=== PATIENT | male | born 1950 | race Caucasian/White ===

== ENCOUNTER 2016-08-12 09:35 | Inpatient (IN) | payer SELFPAY ==
[~2016-08-12] VITALS: Ht 165.1 cm; Wt 73.1 kg
[2016-08-12] MEDS ORDERED: FUROSEMIDE 20 MG/2 ML VIAL IV ONE (10:45)
[2016-08-12 11:08] LABS: Basophils # (auto) 0.2 uL; Eosinophils # (auto) 0.4 uL; Eosinophils % (auto) 4.5 % (0.0-7.0); Hematocrit 38.6 % (41.0-53.0); Hemoglobin 12.7 g/dL (13.5-17.5); Lymphocytes # (auto) 1.3 uL; Lymphocytes % (auto) 14.9 % (10.0-50.0); Mean Corpuscular Hemoglobin 31.5 pg (28.0-32.0); Mean Corpuscular Hgb Conc. 32.8 g/dL (32.0-36.0); Mean Corpuscular Volume 95.8 fL (80.0-100.0); Monocytes # (auto) 0.5 uL; Neutrophils # (auto) 6.4 uL; Neutrophils % (auto) 72.6 % (37.0-80.0); Platelet Count (auto) 425 10^3/uL (140-450); Red Cell Distribution Width 14.1 % (11.6-16.0); White Blood Cell 8.8 10^3/uL (4.4-10.8)
[2016-08-12 11:22] LABS: Albumin 2.2 g/dL (3.4-5.0); BUN/Creatinine Ratio 8.5; Bilirubin, Total 0.2 mg/dL (0.2-1.0); Calcium 7.8 mg/dL (8.5-10.1); Magnesium 2.3 mg/dL (1.6-2.6); Potassium 4.9 mmol/L (3.5-5.1); Total Protein 6.4 g/dL (6.4-8.2)
[2016-08-12 11:23] LABS: INR 0.97 (0.9-1.15); Partial Thromboplastin Time 26.8 sec (22.64-33.71); Prothrombin Time 10.5 sec (9.37-12.3)
[2016-08-12 11:30] LABS: B-Type Natriuretic Peptide 3407.56 pg/mL (0-100); Temperature: 21.5 C (20.0-25.0)
[2016-08-12] MEDS ORDERED: ENOXAPARIN SOD 80 MG/0.8ML SYRINGE SC ONE (13:30)
[2016-08-12] MEDS ORDERED: ASPirin-EC 81 mg tab PO ONE ×2 (14:15→14:45)
[2016-08-12] MEDS ORDERED: MORPHINE SULF INJ 2 MG/ML SYRINGE 1ML IV PRN (14:30)
[2016-08-12] MEDS ORDERED: ACETAMINOPHEN 325 MG TAB PO PRN (14:30)
[2016-08-12] MEDS ORDERED: ONDANSETRON HCL 4 MG/2 ML VIAL IV PRN (14:30)
[2016-08-12] MEDS ORDERED: NITROGLYCERIN 0.4 MG SL TAB SL PRN (14:30)
[2016-08-12] MEDS ORDERED: cloNIDine HCL 0.1 MG TAB PO PRN (14:30)
[2016-08-12] MEDS ORDERED: DOCUSATE SOD 100 MG CAP PO PRN (14:30)
[2016-08-12] MEDS ORDERED: TEMAZEPAM 15 MG CAP PO PRN (14:30)
[2016-08-12] MEDS ORDERED: ENOXAPARIN SOD 30 MG/0.3 ML SYRINGE SC ONE (14:45)
[2016-08-12] MEDS ORDERED: MULTIPLE VITAMIN TAB PO ONE (14:45)
[2016-08-12] MEDS ORDERED: FAMOTIDINE 20 MG TAB PO ONE (14:45)
[2016-08-12 15:01] LABS: Urine Bilirubin Negative (Negative); Urine Blood 1+ /uL (Negative); Urine Color Yellow (Yellow); Urine Glucose 1+ mg/dL (Normal); Urine Ketone Negative (Negative); Urine Nitrite Negative (Negative); Urine RBC 1 /hpf (0 - 3); Urine Squamous Epithelial Cell FEW /hpf (<5); Urine Urobilinogen Normal (Negative)
[2016-08-12] MEDS ORDERED: ASPI81CH43 PO (16:18)
[2016-08-12 17:00] VITALS: BP 168/91
[2016-08-12] MEDS: FUROSEMIDE 40 MG/4 ML VIAL IV SCH (17:44)
[2016-08-12] MEDS: BOOST PLUS 8 ounce PO SCH ×2 (17:45→22:35)
[2016-08-12 22:00] VITALS: BP 144/76
[2016-08-12] MEDS ORDERED: FAMOTIDINE 20 MG TAB PO SCH (22:00)
[2016-08-12] MEDS: POTASSIUM CHLORIDE 8 MEQ TAB PO SCH (22:34)
[2016-08-12] MEDS: SODIUM CHLOR 0.9% PF (SALINE LOCK) 10ML VIAL IV SCH (22:35)
[2016-08-12] MEDS: ATORVASTATIN 20 MG TAB PO SCH (22:35)
[2016-08-13 05:00] VITALS: BP 124/63
[2016-08-13] MEDS: BOOST PLUS 8 ounce PO SCH ×4 (06:00→22:00)
[2016-08-13] MEDS: SODIUM CHLOR 0.9% PF (SALINE LOCK) 10ML VIAL IV SCH ×3 (06:20→22:04)
[2016-08-13 06:41] LABS: Basophils # (auto) 0.1 uL; Basophils % (auto) 1.1 % (0.0-2.0); Eosinophils # (auto) 0.5 uL; Hematocrit 33.1 % (41.0-53.0); Lymphocytes # (auto) 1.7 uL; Lymphocytes % (auto) 23.8 % (10.0-50.0); Mean Corpuscular Hgb Conc. 33.4 g/dL (32.0-36.0); Mean Corpuscular Volume 95.7 fL (80.0-100.0); Mean Platelet Volume 7.8 fL (7.4-10.4); Monocytes # (auto) 0.6 uL; Monocytes % (auto) 7.8 % (0.0-12.0); Neutrophils # (auto) 4.3 uL; Neutrophils % (auto) 60.3 % (37.0-80.0); Platelet Count (auto) 350 10^3/uL (140-450); Red Cell Distribution Width 14.8 % (11.6-16.0); White Blood Cell 7.2 10^3/uL (4.4-10.8)
[2016-08-13 06:57] LABS: Albumin 1.7 g/dL (3.4-5.0); BUN/Creatinine Ratio 8.7; Bilirubin, Total 0.2 mg/dL (0.2-1.0); Calcium 7.3 mg/dL (8.5-10.1); Potassium 4.9 mmol/L (3.5-5.1); Total Protein 5.1 g/dL (6.4-8.2)
[2016-08-13] MEDS: FUROSEMIDE 40 MG/4 ML VIAL IV SCH ×2 (08:02→17:39)
[2016-08-13 08:15] VITALS: BP 136/63
[2016-08-13] MEDS ORDERED: ADENOSINE 72 MG in GIVE UN-DILUTED 0 ML IV ONE (08:15)
[2016-08-13 08:26] VITALS: BP 136/63
[2016-08-13] MEDS ORDERED: ENOXAPARIN SOD 40 MG/0.4 ML SYRINGE SC SCH (10:00)
[2016-08-13 11:24] LABS: Phosphorus 5.8 mg/dL (2.5-4.90); Uric Acid 6.3 mg/dL (3.5-7.2)
[2016-08-13] MEDS: ENOXAPARIN SOD 30 MG/0.3 ML SYRINGE SC SCH (12:23)
[2016-08-13] MEDS: MULTIPLE VITAMIN TAB PO SCH (12:24)
[2016-08-13] MEDS: ASPirin-EC 81 mg tab PO SCH (12:24)
[2016-08-13] MEDS: POTASSIUM CHLORIDE 8 MEQ TAB PO SCH ×2 (12:24→22:04)
[2016-08-13] MEDS: FAMOTIDINE 20 MG TAB PO SCH (12:24)
[2016-08-13] MEDS: HYDROcodone-ACET 5/325MG TAB PO PRN (15:04)
[2016-08-13] MEDS ORDERED: MORPHINE SULF INJ 2 MG/ML SYRINGE 1ML IV PRN (15:15)
[2016-08-13] MEDS: HYDROmorphone HCL 2 MG/ML VL IV PRN ×2 (16:55→22:30)
[2016-08-13 17:14] VITALS: BP 162/85
[2016-08-13] MEDS: CALCIUM ACETATE 667 MG CAP PO SCH (17:39)
[2016-08-13] MEDS: TAMSULOSIN HYDROCHLORIDE 0.4 MG CAP PO SCH (17:39)
[2016-08-13 17:51] VITALS: BP 145/74
[2016-08-13 22:00] VITALS: BP 132/60
[2016-08-13] MEDS: ATORVASTATIN 20 MG TAB PO SCH (22:04)
[2016-08-13 22:57] LABS: Body Fluid Polymorphonuclear 59 %
[2016-08-14] MEDS: HYDROmorphone HCL 2 MG/ML VL IV PRN ×4 (03:33→21:52)
[2016-08-14 05:00] VITALS: BP 135/69
[2016-08-14] MEDS: BOOST PLUS 8 ounce PO SCH ×4 (06:00→21:43)
[2016-08-14] MEDS: FUROSEMIDE 40 MG/4 ML VIAL IV SCH (06:14)
[2016-08-14] MEDS: SODIUM CHLOR 0.9% PF (SALINE LOCK) 10ML VIAL IV SCH ×3 (06:14→21:43)
[2016-08-14 06:38] LABS: Basophils # (auto) 0.1 uL; Basophils % (auto) 0.7 % (0.0-2.0); Eosinophils # (auto) 0.3 uL; Eosinophils % (auto) 2.7 % (0.0-7.0); Hematocrit 36.1 % (41.0-53.0); Hemoglobin 11.9 g/dL (13.5-17.5); Lymphocytes # (auto) 1.4 uL; Lymphocytes % (auto) 11.6 % (10.0-50.0); Mean Corpuscular Hemoglobin 31.9 pg (28.0-32.0); Mean Corpuscular Hgb Conc. 33.1 g/dL (32.0-36.0); Mean Corpuscular Volume 96.4 fL (80.0-100.0); Mean Platelet Volume 8.1 fL (7.4-10.4); Monocytes # (auto) 0.8 uL; Monocytes % (auto) 6.3 % (0.0-12.0); Neutrophils # (auto) 9.4 uL; Neutrophils % (auto) 78.7 % (37.0-80.0); Platelet Count (auto) 382 10^3/uL (140-450); Red Cell Distribution Width 14.5 % (11.6-16.0)
[2016-08-14 07:27] LABS: Albumin 1.7 g/dL (3.4-5.0); Bilirubin, Total 0.2 mg/dL (0.2-1.0); Calcium 7.3 mg/dL (8.5-10.1); Potassium 5.2 mmol/L (3.5-5.1); Total Protein 5.3 g/dL (6.4-8.2)
[2016-08-14] MEDS: CALCIUM ACETATE 667 MG CAP PO SCH ×3 (07:51→18:43)
[2016-08-14 08:44] VITALS: BP 136/67
[2016-08-14] MEDS: FAMOTIDINE 20 MG TAB PO SCH (09:29)
[2016-08-14] MEDS: MULTIPLE VITAMIN TAB PO SCH (09:29)
[2016-08-14] MEDS: POTASSIUM CHLORIDE 8 MEQ TAB PO SCH ×2 (09:29→21:41)
[2016-08-14] MEDS: ENOXAPARIN SOD 30 MG/0.3 ML SYRINGE SC SCH (09:29)
[2016-08-14] MEDS: ASPirin-EC 81 mg tab PO SCH (09:29)
[2016-08-14 13:14] VITALS: BP 130/65
[2016-08-14] MEDS ORDERED: BUMETANIDE INJECTION 25 MG in GIVE UN-DILUTED 0 ML IV SCH ×2 (15:15→22:00)
[2016-08-14 16:57] VITALS: BP 142/81
[2016-08-14] MEDS: ALBUMIN 25% 100 ML IV SCH ×4 (17:10→19:15)
[2016-08-14] MEDS: TAMSULOSIN HYDROCHLORIDE 0.4 MG CAP PO SCH (18:43)
[2016-08-14] MEDS: ATORVASTATIN 20 MG TAB PO SCH (21:41)
[2016-08-14 22:00] VITALS: BP 144/76
[2016-08-15] MEDS: HYDROmorphone HCL 2 MG/ML VL IV PRN ×4 (04:10→20:28)
[2016-08-15 05:00] VITALS: BP 135/65
[2016-08-15] MEDS: BOOST PLUS 8 ounce PO SCH ×4 (06:00→21:43)
[2016-08-15] MEDS: SODIUM CHLOR 0.9% PF (SALINE LOCK) 10ML VIAL IV SCH ×3 (06:19→21:43)
[2016-08-15 06:23] LABS: Basophils # (auto) 0.1 uL; Basophils % (auto) 0.8 % (0.0-2.0); Eosinophils # (auto) 0.5 uL; Eosinophils % (auto) 5.1 % (0.0-7.0); Hematocrit 30.2 % (41.0-53.0); Hemoglobin 10.1 g/dL (13.5-17.5); Lymphocytes # (auto) 1.8 uL; Lymphocytes % (auto) 17.6 % (10.0-50.0); Mean Corpuscular Hemoglobin 32.2 pg (28.0-32.0); Mean Corpuscular Hgb Conc. 33.5 g/dL (32.0-36.0); Mean Platelet Volume 7.6 fL (7.4-10.4); Monocytes # (auto) 0.7 uL; Monocytes % (auto) 7.4 % (0.0-12.0); Neutrophils % (auto) 69.1 % (37.0-80.0); Platelet Count (auto) 343 10^3/uL (140-450); Red Cell Distribution Width 14.2 % (11.6-16.0); White Blood Cell 10.1 10^3/uL (4.4-10.8)
[2016-08-15 06:41] LABS: Albumin 3.2 g/dL (3.4-5.0); BUN/Creatinine Ratio 9.1; Bilirubin, Total 0.3 mg/dL (0.2-1.0); Magnesium 2.4 mg/dL (1.6-2.6); Phosphorus 5.7 mg/dL (2.5-4.90); Potassium 5.3 mmol/L (3.5-5.1)
[2016-08-15] MEDS: CALCIUM ACETATE 667 MG CAP PO SCH ×3 (07:54→18:00)
[2016-08-15 09:09] VITALS: BP 132/69
[2016-08-15] MEDS: MULTIPLE VITAMIN TAB PO SCH (09:41)
[2016-08-15] MEDS: FAMOTIDINE 20 MG TAB PO SCH (09:41)
[2016-08-15] MEDS: ASPirin-EC 81 mg tab PO SCH (09:41)
[2016-08-15] MEDS: ENOXAPARIN SOD 30 MG/0.3 ML SYRINGE SC SCH (09:41)
[2016-08-15] MEDS: POTASSIUM CHLORIDE 8 MEQ TAB PO SCH ×2 (10:00→21:43)
[2016-08-15 13:10] VITALS: BP 147/76
[2016-08-15 13:35] LABS: Rheumatoid Arthritis Factor <10.0 IU/mL (0.0-13.9)
[2016-08-15 13:35] LABS: PSA Free 0.14 ng/mL; Prostate Specific Antigen 0.7 ng/mL (0.0-4.0)
[2016-08-15 17:00] VITALS: BP 136/84
[2016-08-15] MEDS: TAMSULOSIN HYDROCHLORIDE 0.4 MG CAP PO SCH (18:00)
[2016-08-15] MEDS: ATORVASTATIN 20 MG TAB PO SCH (21:43)
[2016-08-15 22:00] VITALS: BP 157/76
[2016-08-16] VITALS (7 sets, daily range): BP systolic 147–166; BP diastolic 69–95
[2016-08-16] MEDS: HYDROmorphone HCL 2 MG/ML VL IV PRN ×4 (04:55→20:12)
[2016-08-16] MEDS: BOOST PLUS 8 ounce PO SCH ×4 (06:00→20:18)
[2016-08-16] MEDS: SODIUM CHLOR 0.9% PF (SALINE LOCK) 10ML VIAL IV SCH ×3 (06:29→20:18)
[2016-08-16 07:13] LABS: Basophils # (auto) 0.2 uL; Basophils % (auto) 1.8 % (0.0-2.0); Eosinophils # (auto) 0.6 uL; Eosinophils % (auto) 6.6 % (0.0-7.0); Hematocrit 30.9 % (41.0-53.0); Hemoglobin 10.3 g/dL (13.5-17.5); Lymphocytes # (auto) 1.5 uL; Lymphocytes % (auto) 16.5 % (10.0-50.0); Mean Corpuscular Hemoglobin 31.8 pg (28.0-32.0); Mean Corpuscular Hgb Conc. 33.4 g/dL (32.0-36.0); Mean Corpuscular Volume 95.3 fL (80.0-100.0); Mean Platelet Volume 7.8 fL (7.4-10.4); Monocytes # (auto) 0.7 uL; Monocytes % (auto) 7.6 % (0.0-12.0); Neutrophils % (auto) 67.5 % (37.0-80.0); Platelet Count (auto) 351 10^3/uL (140-450); Red Cell Distribution Width 13.9 % (11.6-16.0); White Blood Cell 8.9 10^3/uL (4.4-10.8)
[2016-08-16 07:35] LABS: BUN/Creatinine Ratio 9.6; Magnesium 2.3 mg/dL (1.6-2.6); Phosphorus 5.1 mg/dL (2.5-4.90); Potassium 5.1 mmol/L (3.5-5.1)
[2016-08-16 08:10] LABS: Vitamin D 25-Hydroxy 5.3 ng/mL (.); Vitamin D-2 25-Hydroxy <1.0 ng/mL (.)
[2016-08-16] MEDS: CALCIUM ACETATE 667 MG CAP PO SCH ×3 (09:25→18:38)
[2016-08-16] MEDS: POTASSIUM CHLORIDE 8 MEQ TAB PO SCH ×2 (09:31→20:19)
[2016-08-16] MEDS: ENOXAPARIN SOD 30 MG/0.3 ML SYRINGE SC SCH (09:31)
[2016-08-16] MEDS: MULTIPLE VITAMIN TAB PO SCH (09:31)
[2016-08-16] MEDS: FAMOTIDINE 20 MG TAB PO SCH (09:31)
[2016-08-16] MEDS: ASPirin-EC 81 mg tab PO SCH (09:31)
[2016-08-16] MEDS ORDERED: BUMETANIDE INJECTION 25 MG in GIVE UN-DILUTED 0 ML IV SCH (17:00)
[2016-08-16] MEDS: TAMSULOSIN HYDROCHLORIDE 0.4 MG CAP PO SCH (18:38)
[2016-08-16] MEDS: ATORVASTATIN 20 MG TAB PO SCH (22:30)
[2016-08-17] VITALS (7 sets, daily range): BP systolic 142–169; BP diastolic 74–93
[2016-08-17] MEDS: HYDROmorphone HCL 2 MG/ML VL IV PRN ×5 (01:33→20:32)
[2016-08-17] MEDS: SODIUM CHLOR 0.9% PF (SALINE LOCK) 10ML VIAL IV SCH ×3 (05:40→22:11)
[2016-08-17] MEDS: BOOST PLUS 8 ounce PO SCH ×4 (06:00→22:00)
[2016-08-17 06:28] LABS: Basophils # (auto) 0 uL; Basophils % (auto) 0.6 % (0.0-2.0); Eosinophils # (auto) 0.5 uL; Eosinophils % (auto) 6.2 % (0.0-7.0); Hematocrit 30.1 % (41.0-53.0); Hemoglobin 10.2 g/dL (13.5-17.5); Lymphocytes # (auto) 1.5 uL; Lymphocytes % (auto) 17.8 % (10.0-50.0); Mean Corpuscular Hemoglobin 32.4 pg (28.0-32.0); Mean Corpuscular Hgb Conc. 33.8 g/dL (32.0-36.0); Mean Corpuscular Volume 95.8 fL (80.0-100.0); Mean Platelet Volume 8.1 fL (7.4-10.4); Monocytes # (auto) 0.6 uL; Monocytes % (auto) 7.1 % (0.0-12.0); Neutrophils # (auto) 5.6 uL; Neutrophils % (auto) 68.3 % (37.0-80.0); Platelet Count (auto) 359 10^3/uL (140-450); Red Cell Distribution Width 13.9 % (11.6-16.0); White Blood Cell 8.2 10^3/uL (4.4-10.8)
[2016-08-17 06:41] LABS: Potassium 4.7 mmol/L (3.5-5.1)
[2016-08-17 06:53] LABS: BUN/Creatinine Ratio 9.5; Calcium 7.7 mg/dL (8.5-10.1); Magnesium 2.2 mg/dL (1.6-2.6)
[2016-08-17 06:56] LABS: Phosphorus 4.9 mg/dL (2.5-4.90)
[2016-08-17] MEDS: CALCIUM ACETATE 667 MG CAP PO SCH ×3 (08:29→17:52)
[2016-08-17] MEDS: MULTIPLE VITAMIN TAB PO SCH (10:55)
[2016-08-17] MEDS: FAMOTIDINE 20 MG TAB PO SCH (10:56)
[2016-08-17] MEDS: POTASSIUM CHLORIDE 8 MEQ TAB PO SCH (10:56)
[2016-08-17] MEDS: ASPirin-EC 81 mg tab PO SCH (10:56)
[2016-08-17] MEDS: ENOXAPARIN SOD 30 MG/0.3 ML SYRINGE SC SCH (10:56)
[2016-08-17] MEDS: TAMSULOSIN HYDROCHLORIDE 0.4 MG CAP PO SCH (17:52)
[2016-08-17] MEDS ORDERED: BUMETANIDE INJECTION 25 MG in GIVE UN-DILUTED 0 ML IV SCH (19:30)
[2016-08-17] MEDS: ATORVASTATIN 20 MG TAB PO SCH (22:11)
[2016-08-18] MEDS: HYDROmorphone HCL 2 MG/ML VL IV PRN ×4 (01:24→20:15)
[2016-08-18 05:00] VITALS: BP 162/83
[2016-08-18] MEDS: BOOST PLUS 8 ounce PO SCH ×4 (06:00→22:08)
[2016-08-18] MEDS: SODIUM CHLOR 0.9% PF (SALINE LOCK) 10ML VIAL IV SCH ×3 (06:00→22:08)
[2016-08-18 06:16] LABS: Basophils # (auto) 0.1 uL; Basophils % (auto) 0.8 % (0.0-2.0); Eosinophils # (auto) 0.6 uL; Eosinophils % (auto) 6.2 % (0.0-7.0); Hematocrit 31.7 % (41.0-53.0); Hemoglobin 10.9 g/dL (13.5-17.5); Lymphocytes # (auto) 1.4 uL; Lymphocytes % (auto) 14.2 % (10.0-50.0); Mean Corpuscular Hemoglobin 32.3 pg (28.0-32.0); Mean Corpuscular Hgb Conc. 34.3 g/dL (32.0-36.0); Mean Corpuscular Volume 94.3 fL (80.0-100.0); Mean Platelet Volume 7.6 fL (7.4-10.4); Monocytes # (auto) 0.6 uL; Monocytes % (auto) 6.7 % (0.0-12.0); Neutrophils # (auto) 6.9 uL; Neutrophils % (auto) 72.1 % (37.0-80.0); Platelet Count (auto) 383 10^3/uL (140-450); Red Cell Distribution Width 13.6 % (11.6-16.0); White Blood Cell 9.6 10^3/uL (4.4-10.8)
[2016-08-18 06:49] LABS: BUN/Creatinine Ratio 9.8; Calcium 8.2 mg/dL (8.5-10.1); Magnesium 2.1 mg/dL (1.6-2.6); Potassium 4.6 mmol/L (3.5-5.1)
[2016-08-18 07:22] VITALS: BP 151/71
[2016-08-18] MEDS: CALCIUM ACETATE 667 MG CAP PO SCH ×3 (09:50→17:30)
[2016-08-18] MEDS: ASPirin-EC 81 mg tab PO SCH (09:51)
[2016-08-18] MEDS: FAMOTIDINE 20 MG TAB PO SCH (09:51)
[2016-08-18] MEDS: MULTIPLE VITAMIN TAB PO SCH (09:51)
[2016-08-18] MEDS: ENOXAPARIN SOD 30 MG/0.3 ML SYRINGE SC SCH (09:52)
[2016-08-18] MEDS: HYDROcodone-ACET 5/325MG TAB PO PRN ×2 (09:53→16:21)
[2016-08-18 11:58] VITALS: BP 148/77
[2016-08-18 16:30] VITALS: BP 146/77
[2016-08-18] MEDS: TAMSULOSIN HYDROCHLORIDE 0.4 MG CAP PO SCH (17:30)
[2016-08-18 21:51] VITALS: BP 150/69
[2016-08-18] MEDS: ATORVASTATIN 20 MG TAB PO SCH (22:08)
[2016-08-19 05:42] VITALS: BP 160/69
[2016-08-19] MEDS: BOOST PLUS 8 ounce PO SCH ×4 (06:19→21:49)
[2016-08-19] MEDS: SODIUM CHLOR 0.9% PF (SALINE LOCK) 10ML VIAL IV SCH ×3 (06:19→21:48)
[2016-08-19] MEDS: MULTIPLE VITAMIN TAB PO SCH (08:00)
[2016-08-19] MEDS: CALCIUM ACETATE 667 MG CAP PO SCH ×3 (08:00→17:23)
[2016-08-19] MEDS: ASPirin-EC 81 mg tab PO SCH (08:00)
[2016-08-19] MEDS: ENOXAPARIN SOD 30 MG/0.3 ML SYRINGE SC SCH (08:01)
[2016-08-19] MEDS: FAMOTIDINE 20 MG TAB PO SCH (08:01)
[2016-08-19] MEDS: HYDROmorphone HCL 2 MG/ML VL IV PRN ×2 (08:02→16:24)
[2016-08-19 08:34] VITALS: BP 154/74
[2016-08-19] MEDS: HYDROcodone-ACET 5/325MG TAB PO PRN ×3 (11:19→21:54)
[2016-08-19 11:56] VITALS: BP_SYST 144; BP_SYST 161; BP_DIAS 67; BP_DIAS 97
[2016-08-19] MEDS ORDERED: BUME1TAB26 PO (13:20)
[2016-08-19] MEDS ORDERED: MULTTAB99 PO (13:20)
[2016-08-19] MEDS ORDERED: ATOR20TA50 PO (13:20)
[2016-08-19] MEDS ORDERED: TAM04C PO (13:20)
[2016-08-19] MEDS ORDERED: CAL667C PO (13:20)
[2016-08-19] MEDS ORDERED: LIDOCAINE 2%HCL (LOCAL ANESTH.) INJ 20ML MDV ONE (14:55)
[2016-08-19] MEDS ORDERED: MIDAZOLAM HCL 1MG/1ML-2 ML VIAL ONE (14:55)
[2016-08-19] MEDS: TAMSULOSIN HYDROCHLORIDE 0.4 MG CAP PO SCH (17:23)
[2016-08-19] MEDS ORDERED: BUMETANIDE 1 MG TAB PO ONE (21:15)
[2016-08-19] MEDS: ATORVASTATIN 20 MG TAB PO SCH (21:49)
[2016-08-19 22:00] VITALS: BP 155/80
[2016-08-20] MEDS: HYDROmorphone HCL 2 MG/ML VL IV PRN ×3 (01:22→18:07)
[2016-08-20] MEDS: HYDROcodone-ACET 5/325MG TAB PO PRN ×5 (04:06→22:46)
[2016-08-20 05:00] VITALS: BP 143/81
[2016-08-20] MEDS: SODIUM CHLOR 0.9% PF (SALINE LOCK) 10ML VIAL IV SCH ×3 (06:00→22:48)
[2016-08-20] MEDS: BOOST PLUS 8 ounce PO SCH ×4 (06:00→22:00)
[2016-08-20] MEDS: BUMETANIDE 1 MG TAB PO SCH (08:40)
[2016-08-20 08:41] VITALS: BP 158/81
[2016-08-20] MEDS: ASPirin-EC 81 mg tab PO SCH (08:42)
[2016-08-20] MEDS: FAMOTIDINE 20 MG TAB PO SCH (08:42)
[2016-08-20] MEDS: CALCIUM ACETATE 667 MG CAP PO SCH ×3 (08:43→18:07)
[2016-08-20] MEDS: MULTIPLE VITAMIN TAB PO SCH (08:43)
[2016-08-20 11:52] VITALS: BP 144/70
[2016-08-20 17:41] VITALS: BP 147/67
[2016-08-20] MEDS: TAMSULOSIN HYDROCHLORIDE 0.4 MG CAP PO SCH (18:07)
[2016-08-20 22:00] VITALS: BP 134/66
[2016-08-20] MEDS: ATORVASTATIN 20 MG TAB PO SCH (22:46)
[2016-08-21] MEDS: HYDROmorphone HCL 2 MG/ML VL IV PRN ×3 (02:05→18:19)
[2016-08-21 05:00] VITALS: BP 157/73
[2016-08-21] MEDS: SODIUM CHLOR 0.9% PF (SALINE LOCK) 10ML VIAL IV SCH ×3 (05:18→22:00)
[2016-08-21 05:57] LABS: Basophils # (auto) 0 uL; Basophils % (auto) 0.3 % (0.0-2.0); Eosinophils # (auto) 0.6 uL; Hematocrit 32.3 % (41.0-53.0); Hemoglobin 10.7 g/dL (13.5-17.5); Lymphocytes # (auto) 1.7 uL; Lymphocytes % (auto) 15.8 % (10.0-50.0); Mean Corpuscular Hemoglobin 31.8 pg (28.0-32.0); Mean Corpuscular Hgb Conc. 33.3 g/dL (32.0-36.0); Mean Corpuscular Volume 95.7 fL (80.0-100.0); Mean Platelet Volume 7.8 fL (7.4-10.4); Monocytes # (auto) 0.8 uL; Monocytes % (auto) 7.3 % (0.0-12.0); Neutrophils # (auto) 7.6 uL; Neutrophils % (auto) 70.6 % (37.0-80.0); Platelet Count (auto) 412 10^3/uL (140-450); Red Cell Distribution Width 13.9 % (11.6-16.0); White Blood Cell 10.7 10^3/uL (4.4-10.8)
[2016-08-21] MEDS: BOOST PLUS 8 ounce PO SCH ×4 (06:00→22:00)
[2016-08-21 06:15] LABS: Potassium 4.1 mmol/L (3.5-5.1)
[2016-08-21 06:37] LABS: BUN/Creatinine Ratio 9.8; Calcium 7.8 mg/dL (8.5-10.1)
[2016-08-21 08:00] VITALS: BP 146/67
[2016-08-21] MEDS: CALCIUM ACETATE 667 MG CAP PO SCH ×3 (08:22→17:36)
[2016-08-21] MEDS: MULTIPLE VITAMIN TAB PO SCH (10:17)
[2016-08-21] MEDS: FAMOTIDINE 20 MG TAB PO SCH (10:17)
[2016-08-21] MEDS: BUMETANIDE 1 MG TAB PO SCH (10:19)
[2016-08-21] MEDS: ASPirin-EC 81 mg tab PO SCH (10:19)
[2016-08-21 12:00] VITALS: BP 118/56
[2016-08-21] MEDS: HYDROcodone-ACET 5/325MG TAB PO PRN ×2 (15:26→21:44)
[2016-08-21 17:00] VITALS: BP 145/64
[2016-08-21] MEDS: TAMSULOSIN HYDROCHLORIDE 0.4 MG CAP PO SCH (17:35)
[2016-08-21 21:30] VITALS: BP 156/80
[2016-08-21] MEDS: ATORVASTATIN 20 MG TAB PO SCH (21:44)
[2016-08-22] MEDS: HYDROmorphone HCL 2 MG/ML VL IV PRN (02:39)
[2016-08-22 05:19] VITALS: BP 142/72
[2016-08-22] MEDS: BOOST PLUS 8 ounce PO SCH (06:00)
[2016-08-22] MEDS: SODIUM CHLOR 0.9% PF (SALINE LOCK) 10ML VIAL IV SCH (06:08)
[2016-08-22 06:32] LABS: Basophils # (auto) 0 uL; Basophils % (auto) 0.4 % (0.0-2.0); Eosinophils # (auto) 0.7 uL; Eosinophils % (auto) 7.4 % (0.0-7.0); Hematocrit 33.6 % (41.0-53.0); Hemoglobin 11.2 g/dL (13.5-17.5); Lymphocytes # (auto) 1.6 uL; Lymphocytes % (auto) 16.8 % (10.0-50.0); Mean Corpuscular Hemoglobin 31.7 pg (28.0-32.0); Mean Corpuscular Hgb Conc. 33.2 g/dL (32.0-36.0); Mean Corpuscular Volume 95.3 fL (80.0-100.0); Mean Platelet Volume 8.1 fL (7.4-10.4); Monocytes # (auto) 0.6 uL; Neutrophils # (auto) 6.5 uL; Neutrophils % (auto) 69.4 % (37.0-80.0); Platelet Count (auto) 432 10^3/uL (140-450); Red Cell Distribution Width 13.5 % (11.6-16.0); White Blood Cell 9.4 10^3/uL (4.4-10.8)
[2016-08-22 06:52] LABS: Potassium 4.4 mmol/L (3.5-5.1)
[2016-08-22 06:58] LABS: Calcium 7.9 mg/dL (8.5-10.1)
[2016-08-22 08:00] VITALS: BP 130/49
[2016-08-22] MEDS: CALCIUM ACETATE 667 MG CAP PO SCH ×2 (08:20→12:00)
[2016-08-22] MEDS: MULTIPLE VITAMIN TAB PO SCH (10:01)
[2016-08-22] MEDS: FAMOTIDINE 20 MG TAB PO SCH (10:01)
[2016-08-22] MEDS: ASPirin-EC 81 mg tab PO SCH (10:01)
[2016-08-22] MEDS: BUMETANIDE 1 MG TAB PO SCH (10:02)
[2016-08-22 11:00] VITALS: BP_SYST 145
[2016-08-22 14:38] VITALS: BP 130/49
== END 2016-08-22 15:45 | disposition home or self-care (01) | DRG 682 ==
LOC: ER 09:35 → TELE 09:36 → TELE-E-ADS 16:16 → TELE-WESTW 16:49
PROVIDERS: ADMIT Internal Medicine; ATTEND Family Medicine
PROC: 0W993ZZ Drainage of Right Pleural Cavity, Percutaneous Approach (ICD-10-PCS; principal; 2016-08-13)
PROC: 0W993ZZ Drainage of Right Pleural Cavity, Percutaneous Approach (ICD-10-PCS; 2016-08-18)
PROC: 0W9830Z Drainage of Chest Wall with Drainage Device, Percutaneous Approach (ICD-10-PCS; 2016-08-19)
DX: N17.9 Acute kidney failure, unspecified (principal); E43 Unspecified severe protein-calorie malnutrition; I50.43 Acute on chronic combined systolic (congestive) and diastolic (congestive) heart failure; J96.90 Respiratory failure, unspecified, unspecified whether with hypoxia or hypercapnia; E87.2 Acidosis; J90 Pleural effusion, not elsewhere classified; N13.8 Other obstructive and reflux uropathy; J93.9 Pneumothorax, unspecified; I13.2 Hypertensive heart and chronic kidney disease with heart failure and with stage 5 chronic kidney disease, or end stage renal disease; N18.4 Chronic kidney disease, stage 4 (severe); N04.9 Nephrotic syndrome with unspecified morphologic changes; D63.8 Anemia in other chronic diseases classified elsewhere; K74.60 Unspecified cirrhosis of liver; R74.8 Abnormal levels of other serum enzymes; F10.20 Alcohol dependence, uncomplicated; E83.51 Hypocalcemia; F17.210 Nicotine dependence, cigarettes, uncomplicated; Z82.3 Family history of stroke; Z83.3 Family history of diabetes mellitus; Z80.9 Family history of malignant neoplasm, unspecified; N40.1 Benign prostatic hyperplasia with lower urinary tract symptoms; R33.8 Other retention of urine; B19.20 Unspecified viral hepatitis C without hepatic coma; E87.5 Hyperkalemia; J44.9 Chronic obstructive pulmonary disease, unspecified; I25.10 Atherosclerotic heart disease of native coronary artery without angina pectoris; N28.1 Cyst of kidney, acquired; N48.89 Other specified disorders of penis; N50.89 Other specified disorders of the male genital organs; D71 Functional disorders of polymorphonuclear neutrophils; N18.6 End stage renal disease
CPT/HCPCS: 10022; 36415; 71010; 71020; 71250; 74176; 76604; 76705; 76775; 76942; 77012; 78452; 80048; 80053; 81001; 82306; 82570; 82595; 82784; 83036; 83735; 83880; 83970; 84100; 84154; 84156; 84300; 84443; 84484; 84550; 85025; 85610; 85652; 85730; 86038; 86141; 86160; 86334; 86335; 86431; 86592; 86803; 87340; 89051; 93005; 93017; 93306; 96372; 96374; 97001; 97116; 97530; J0153; J2250; J2405

== ENCOUNTER → 2016-09-16 | Outpatient (CLI) | payer MEDICAID ==
[~2016-09-16] MED LIST: ASPI81CH43 PO; ATOR20TA50 PO; BUME1TAB26 PO; CAL667C PO; DOCU100C8 PO; FAMO-12 PO; LEVO250T45 PO; MULTTAB99 PO; NOR5T PO; TAM04C PO
[2016-09-16 16:34] LABS: Basophils # (auto) 0.1 uL; Basophils % (auto) 0.5 % (0.0-2.0); DEFINITIVE VIEW TRANSMISSION; Eosinophils # (auto) 0.7 uL; Eosinophils % (auto) 6.9 % (0.0-7.0); Hematocrit 36.7 % (41.0-53.0); Hemoglobin 12.1 g/dL (13.5-17.5); Lymphocytes # (auto) 1.8 uL; Lymphocytes % (auto) 16.8 % (10.0-50.0); Mean Corpuscular Hemoglobin 31.2 pg (28.0-32.0); Mean Corpuscular Volume 94.7 fL (80.0-100.0); Mean Platelet Volume 7.5 fL (7.4-10.4); Monocytes # (auto) 0.4 uL; Monocytes % (auto) 4.1 % (0.0-12.0); Neutrophils # (auto) 7.5 uL; Neutrophils % (auto) 71.7 % (37.0-80.0); Platelet Count (auto) 448 10^3/uL (140-450); Red Cell Distribution Width 13.6 % (11.6-16.0); White Blood Cell 10.4 10^3/uL (4.4-10.8)
[2016-09-16 16:49] LABS: BUN/Creatinine Ratio 13.1; Calcium 7.9 mg/dL (8.5-10.1); Potassium 4.6 mmol/L (3.5-5.1)
== END | disposition home or self-care (01) ==
LOC: LAB 15:56
PROVIDERS: ATTEND Family Medicine
DX: N18.9 Chronic kidney disease, unspecified (principal)
CPT/HCPCS: 36415; 80048; 85025

== ENCOUNTER 2017-01-02 10:22 | Inpatient (IN) | payer MEDICAID ==
[~2017-01-02] VITALS: Ht 167.6 cm; Wt 67.0 kg
[2017-01-02] VITALS (16 sets, daily range): BP systolic 111–138; BP diastolic 48–89
[~2017-01-02 10:22] MED LIST changes: -CAL667C PO; +CALC667C5 PO; +HYDR-4663 PO; -NOR5T PO
[2017-01-02] MEDS ORDERED: IPRATROPIUM BROM 0.5 MG/2.5ML INH SOL HHN ONE (11:00)
[2017-01-02] MEDS ORDERED: methylPREDNISolone SOD SUCC 125 MG/2 ML VL IV ONE (11:00)
[2017-01-02] MEDS ORDERED: ALBUTEROL SULF 2.5 MG/0.5ML(0.5%) NEB SOLN HHN ONE (11:00)
[2017-01-02 11:27] LABS: Basophils # (auto) 0.1 uL; Basophils % (auto) 0.5 % (0.0-2.0); CONDITION Y; Eosinophils # (auto) 0.1 uL; Hematocrit 39.8 % (41.0-53.0); Hemoglobin 13.7 g/dL (13.5-17.5); Lymphocytes % (auto) 8.9 % (10.0-50.0); Mean Corpuscular Hgb Conc. 34.4 g/dL (32.0-36.0); Mean Corpuscular Volume 95.9 fL (80.0-100.0); Mean Platelet Volume 8.3 fL (7.4-10.4); Monocytes # (auto) 0.5 uL; Monocytes % (auto) 4.6 % (0.0-12.0); Neutrophils # (auto) 9.9 uL; Platelet Count (auto) 439 10^3/uL (140-450); Red Cell Distribution Width 13.7 % (11.6-16.0); White Blood Cell 11.6 10^3/uL (4.4-10.8)
[2017-01-02] MEDS ORDERED: LEVOFLOXACIN 500MG 100 ML IV ONE (11:45)
[2017-01-02] MEDS ORDERED: cefTRIAXone 1GM/50ML D5W 50 ML IV ONE (11:45)
[2017-01-02 11:49] LABS: B-Type Natriuretic Peptide 4861.32 pg/mL (0-100); Temperature: 24.3 C (20.0-25.0)
[2017-01-02 11:57] LABS: Bilirubin, Total 0.5 mg/dL (0.2-1.0); Calcium 8.8 mg/dL (8.5-10.1); Magnesium 2.4 mg/dL (1.6-2.6); Potassium 4.6 mmol/L (3.5-5.1); Total Protein 8.2 g/dL (6.4-8.2)
[2017-01-02] MEDS ORDERED: ASPirin 81 mg TAB PO ONE ×2 (12:45→13:45)
[2017-01-02] MEDS ORDERED: ONDANSETRON HCL 4 MG/2 ML VIAL IV ONE (12:45)
[2017-01-02] MEDS ORDERED: FUROSEMIDE 40 MG/4 ML VIAL IV ONE (12:45)
[2017-01-02] MEDS ORDERED: MORPHINE SULFATE 4 MG/ML SYRG IV ONE (12:45)
[2017-01-02] MEDS ORDERED: ENOXAPARIN SOD 80 MG/0.8ML SYRINGE SC ONE (13:00)
[2017-01-02] MEDS ORDERED: HYDROcodone-ACET 5/325MG TAB PO PRN (13:30)
[2017-01-02] MEDS ORDERED: ACETAMINOPHEN 500 MG TAB PO PRN (13:30)
[2017-01-02] MEDS ORDERED: MORPHINE SULF INJ 2 MG/ML SYRINGE 1ML IV PRN (13:30)
[2017-01-02] MEDS ORDERED: PROMETHAZINE HCL 25 MG/ML 1ML IV PRN (13:30)
[2017-01-02] MEDS ORDERED: NITROGLYCERIN 0.4 MG SL TAB SL PRN (13:30)
[2017-01-02] MEDS ORDERED: FUROSEMIDE 100 MG/10ML VIAL IV ONE (13:30)
[2017-01-02] MEDS ORDERED: TEMAZEPAM 15 MG CAP PO PRN (13:30)
[2017-01-02] MEDS ORDERED: ALBUTEROL SULF 2.5 MG/0.5ML(0.5%) NEB SOLN NEB PRN (13:30)
[2017-01-02] MEDS ORDERED: LACTULOSE 20Gm/30ML SOLN PO PRN (13:30)
[2017-01-02] MEDS ORDERED: LORazepam 0.5 MG TAB PO PRN (13:30)
[2017-01-02] MEDS ORDERED: DEXTROSE (50%) 50ML SYRG IV PRN (13:30)
[2017-01-02] MEDS: CARVEDILOL 3.125 MG TAB PO SCH ×2 (14:16→22:00)
[2017-01-02] MEDS: AZITHROMYCIN 500MG/D5W 250ML 250 ML IV SCH (14:16)
[2017-01-02] MEDS: ENALAPRIL MALEATE 2.5 MG TAB PO SCH (14:17)
[2017-01-02] MEDS ORDERED: CLOPIDOGREL BISULFATE 75 MG TAB PO ONE (14:30)
[2017-01-02] MEDS: IPRATROPIUM BROM 0.5 MG/2.5ML INH SOL NEB SCH (18:00)
[2017-01-02] MEDS: ALBUTEROL SULF 2.5 MG/0.5ML(0.5%) NEB SOLN NEB SCH (18:00)
[2017-01-02] MEDS: ACCU-CHEK COMFORT CURVE STRIP VI SCH (18:00)
[2017-01-02] MEDS: FUROSEMIDE 40 MG/4 ML VIAL IV SCH (19:09)
[2017-01-02] MEDS: CALCIUM ACETATE 667 MG CAP PO SCH (19:10)
[2017-01-02] MEDS: methylPREDNISolone SOD SUCC 40 MG/ML VL IV SCH (19:10)
[2017-01-02] MEDS: TAMSULOSIN HYDROCHLORIDE 0.4 MG CAP PO SCH (19:10)
[2017-01-02] MEDS: InsuLIN REG 1unit/0.01ml Soln (100units/ml) SC SCH (21:30)
[2017-01-02] MEDS: ATORVASTATIN 20 MG TAB PO SCH (22:00)
[2017-01-02] MEDS ORDERED: ATORVASTATIN 20 MG TAB PO SCH (22:00)
[2017-01-03] VITALS (22 sets, daily range): BP systolic 107–140; BP diastolic 47–65
[2017-01-03] MEDS: ACCU-CHEK COMFORT CURVE STRIP VI SCH ×5 (00:14→23:36)
[2017-01-03] MEDS: MORPHINE SULFATE 4 MG/ML SYRG IV PRN ×4 (02:21→21:48)
[2017-01-03 04:44] LABS: Basophils # (auto) 0 uL; Basophils % (auto) 0.1 % (0.0-2.0); CONDITION Y; Eosinophils # (auto) 0 uL; Hematocrit 28.3 % (41.0-53.0); Hemoglobin 9.6 g/dL (13.5-17.5); Lymphocytes # (auto) 0.5 uL; Mean Corpuscular Hemoglobin 32.9 pg (28.0-32.0); Mean Corpuscular Hgb Conc. 33.7 g/dL (32.0-36.0); Mean Corpuscular Volume 97.6 fL (80.0-100.0); Mean Platelet Volume 8.4 fL (7.4-10.4); Monocytes # (auto) 0.1 uL; Monocytes % (auto) 1.2 % (0.0-12.0); Neutrophils # (auto) 9.4 uL; Neutrophils % (auto) 93.7 % (37.0-80.0); Platelet Count (auto) 315 10^3/uL (140-450); Red Cell Distribution Width 13.7 % (11.6-16.0); White Blood Cell 10.1 10^3/uL (4.4-10.8)
[2017-01-03 05:22] LABS: Albumin 2.1 g/dL (3.4-5.0); BUN/Creatinine Ratio 13.6; Bilirubin, Total 0.2 mg/dL (0.2-1.0); Calcium 7.5 mg/dL (8.5-10.1); Total Protein 6.2 g/dL (6.4-8.2)
[2017-01-03] MEDS: methylPREDNISolone SOD SUCC 40 MG/ML VL IV SCH ×5 (06:04→23:51)
[2017-01-03] MEDS: FUROSEMIDE 40 MG/4 ML VIAL IV SCH (06:04)
[2017-01-03] MEDS: InsuLIN REG 1unit/0.01ml Soln (100units/ml) SC SCH ×4 (06:05→23:45)
[2017-01-03] MEDS: ALBUTEROL SULF 2.5 MG/0.5ML(0.5%) NEB SOLN NEB SCH ×4 (06:18→18:00)
[2017-01-03] MEDS: IPRATROPIUM BROM 0.5 MG/2.5ML INH SOL NEB SCH ×4 (06:19→18:00)
[2017-01-03] MEDS: CALCIUM ACETATE 667 MG CAP PO SCH ×3 (08:01→18:24)
[2017-01-03] MEDS ORDERED: cefTRIAXone 1GM/50ML D5W 50 ML IV SCH (09:00)
[2017-01-03] MEDS: CLOPIDOGREL BISULFATE 75 MG TAB PO SCH (09:49)
[2017-01-03] MEDS: ENOXAPARIN SOD 30 MG/0.3 ML SYRINGE SC SCH (09:49)
[2017-01-03] MEDS: ASPirin 81 mg TAB PO SCH (09:49)
[2017-01-03] MEDS: PANTOPRAZOLE 40 MG TAB PO SCH (09:49)
[2017-01-03] MEDS: DOCUSATE SOD 100 MG CAP PO SCH (09:50)
[2017-01-03] MEDS: MULTIPLE VITAMIN TAB PO SCH (09:50)
[2017-01-03] MEDS: CARVEDILOL 3.125 MG TAB PO SCH ×2 (09:51→21:36)
[2017-01-03] MEDS: ENALAPRIL MALEATE 2.5 MG TAB PO SCH (09:51)
[2017-01-03] MEDS: NITROGLYCERIN 0.2MG/HR TOPICAL PATCH TD SCH (09:52)
[2017-01-03] MEDS: AZITHROMYCIN 500MG/D5W 250ML 250 ML IV SCH (09:55)
[2017-01-03] MEDS ORDERED: BUMETANIDE 1 MG TAB PO SCH (10:00)
[2017-01-03 12:14] LABS: Phosphorus 4.4 mg/dL (2.5-4.90); Uric Acid 6.9 mg/dL (3.5-7.2)
[2017-01-03] MEDS: BUMETANIDE (0.25 MG/ML) INJ 10ML IV SCH ×2 (13:30→18:04)
[2017-01-03 16:10] LABS: Urine Bilirubin Negative (Negative); Urine Blood 1+ /uL (Negative); Urine Color Yellow (Yellow); Urine Glucose 3+ mg/dL (Normal); Urine Hyaline Cast FEW /lpf (0 - 2); Urine Ketone Negative (Negative); Urine Mucus FEW (None Seen); Urine Nitrite Negative (Negative); Urine RBC 1 /hpf (0 - 3); Urine Urobilinogen Normal (Negative); Urine pH 5.5 (5.0-8.0)
[2017-01-03] MEDS: TAMSULOSIN HYDROCHLORIDE 0.4 MG CAP PO SCH (18:23)
[2017-01-03] MEDS: ATORVASTATIN 20 MG TAB PO SCH (21:36)
[2017-01-04] VITALS: BP 127/69
[2017-01-04] MEDS: ALBUTEROL SULF 2.5 MG/0.5ML(0.5%) NEB SOLN NEB SCH ×4 (00:55→19:09)
[2017-01-04] MEDS: IPRATROPIUM BROM 0.5 MG/2.5ML INH SOL NEB SCH ×4 (00:55→19:09)
[2017-01-04] MEDS ORDERED: ETOMIDATE (2MG/ML) 20ML VIAL IV ONE (03:49)
[2017-01-04 05:00] LABS: Albumin 2.3 g/dL (3.4-5.0); Calcium 7.4 mg/dL (8.5-10.1)
[2017-01-04 05:03] LABS: BUN/Creatinine Ratio 15.8
[2017-01-04 05:05] LABS: Bilirubin, Total 0.2 mg/dL (0.2-1.0); Total Protein 5.9 g/dL (6.4-8.2)
[2017-01-04 05:09] LABS: Potassium 5.7 mmol/L (3.5-5.1)
[2017-01-04] MEDS: BUMETANIDE (0.25 MG/ML) INJ 10ML IV SCH ×2 (06:00→18:21)
[2017-01-04] MEDS: methylPREDNISolone SOD SUCC 40 MG/ML VL IV SCH ×3 (06:09→18:21)
[2017-01-04] MEDS: ACCU-CHEK COMFORT CURVE STRIP VI SCH ×3 (06:10→18:07)
[2017-01-04] MEDS: InsuLIN REG 1unit/0.01ml Soln (100units/ml) SC SCH ×3 (06:11→18:11)
[2017-01-04] MEDS: MORPHINE SULFATE 4 MG/ML SYRG IV PRN ×2 (07:09→16:35)
[2017-01-04 08:08] VITALS: BP 116/63
[2017-01-04] MEDS: CALCIUM ACETATE 667 MG CAP PO SCH ×3 (08:19→18:21)
[2017-01-04] MEDS ORDERED: SODIUM POLYSTYRENE SULF 15GM/60ML SUSP ONE (09:05)
[2017-01-04] MEDS ORDERED: BUMETANIDE (0.25 MG/ML) INJ 10ML IV ONE (09:15)
[2017-01-04] MEDS ORDERED: SODIUM POLYSTYRENE SULF 15GM/60ML SUSP PO ONE (09:15)
[2017-01-04] MEDS: CLOPIDOGREL BISULFATE 75 MG TAB PO SCH (09:24)
[2017-01-04] MEDS: MULTIPLE VITAMIN TAB PO SCH (09:24)
[2017-01-04] MEDS: PANTOPRAZOLE 40 MG TAB PO SCH (09:24)
[2017-01-04] MEDS: ENOXAPARIN SOD 30 MG/0.3 ML SYRINGE SC SCH (09:24)
[2017-01-04] MEDS: ASPirin 81 mg TAB PO SCH (09:25)
[2017-01-04] MEDS: DOCUSATE SOD 100 MG CAP PO SCH (09:25)
[2017-01-04] MEDS: CARVEDILOL 3.125 MG TAB PO SCH ×2 (09:25→22:22)
[2017-01-04] MEDS: NITROGLYCERIN 0.2MG/HR TOPICAL PATCH TD SCH (09:26)
[2017-01-04] MEDS ORDERED: HEPARIN DRIP/D5W 100UNITS/ML 250 ML IV SCH (10:17)
[2017-01-04 10:41] LABS: Basophils # (auto) 0.1 uL; Basophils % (auto) 0.4 % (0.0-2.0); CONDITION Y; Eosinophils # (auto) 0 uL; Hematocrit 30.9 % (41.0-53.0); Hemoglobin 10.4 g/dL (13.5-17.5); Lymphocytes # (auto) 0.6 uL; Lymphocytes % (auto) 3.4 % (10.0-50.0); Mean Corpuscular Hemoglobin 33.2 pg (28.0-32.0); Mean Corpuscular Hgb Conc. 33.8 g/dL (32.0-36.0); Mean Platelet Volume 8.1 fL (7.4-10.4); Monocytes # (auto) 0.2 uL; Monocytes % (auto) 1.5 % (0.0-12.0); Neutrophils % (auto) 94.7 % (37.0-80.0); Platelet Count (auto) 369 10^3/uL (140-450); Red Cell Distribution Width 13.8 % (11.6-16.0); White Blood Cell 16.9 10^3/uL (4.4-10.8)
[2017-01-04 10:55] LABS: INR 0.95 (0.9-1.15); Partial Thromboplastin Time 27.5 sec (22.64-33.71); Prothrombin Time 10.4 sec (9.37-12.3)
[2017-01-04 12:19] VITALS: BP 146/77
[2017-01-04 16:34] VITALS: BP 144/76
[2017-01-04] MEDS: TAMSULOSIN HYDROCHLORIDE 0.4 MG CAP PO SCH (18:21)
[2017-01-04] MEDS: ATORVASTATIN 20 MG TAB PO SCH (22:22)
[2017-01-04] MEDS: MORPHINE SULF 15mg ER tab PO SCH (22:22)
[2017-01-05] MEDS: IPRATROPIUM BROM 0.5 MG/2.5ML INH SOL NEB SCH ×4 (00:27→20:07)
[2017-01-05] MEDS: ALBUTEROL SULF 2.5 MG/0.5ML(0.5%) NEB SOLN NEB SCH ×4 (00:27→20:07)
[2017-01-05] MEDS: methylPREDNISolone SOD SUCC 40 MG/ML VL IV SCH ×4 (00:42→17:48)
[2017-01-05] MEDS: BUMETANIDE (0.25 MG/ML) INJ 10ML IV SCH ×2 (05:39→17:48)
[2017-01-05] MEDS: ACCU-CHEK COMFORT CURVE STRIP VI SCH ×4 (05:39→17:49)
[2017-01-05] MEDS: MORPHINE SULF 15mg ER tab PO SCH ×3 (05:52→23:07)
[2017-01-05] MEDS: InsuLIN REG 1unit/0.01ml Soln (100units/ml) SC SCH ×4 (06:05→17:53)
[2017-01-05 06:19] LABS: Basophils # (auto) 0 uL; CONDITION Y; Eosinophils # (auto) 0 uL; Hematocrit 30.2 % (41.0-53.0); Hemoglobin 10.2 g/dL (13.5-17.5); Lymphocytes # (auto) 0.4 uL; Lymphocytes % (auto) 2.8 % (10.0-50.0); Mean Corpuscular Hgb Conc. 33.9 g/dL (32.0-36.0); Mean Corpuscular Volume 97.3 fL (80.0-100.0); Mean Platelet Volume 8.5 fL (7.4-10.4); Monocytes # (auto) 0.2 uL; Monocytes % (auto) 1.3 % (0.0-12.0); Neutrophils # (auto) 12.9 uL; Neutrophils % (auto) 95.9 % (37.0-80.0); Platelet Count (auto) 380 10^3/uL (140-450); White Blood Cell 13.5 10^3/uL (4.4-10.8)
[2017-01-05 06:25] LABS: INR 0.97 (0.9-1.15); Partial Thromboplastin Time 50.2 sec (22.64-33.71); Prothrombin Time 10.6 sec (9.37-12.3)
[2017-01-05 06:43] LABS: Albumin 2.5 g/dL (3.4-5.0); BUN/Creatinine Ratio 15.6; Bilirubin, Total 0.2 mg/dL (0.2-1.0); Calcium 7.5 mg/dL (8.5-10.1); Potassium 4.4 mmol/L (3.5-5.1); Total Protein 6.5 g/dL (6.4-8.2)
[2017-01-05] MEDS ORDERED: HEPARIN DRIP/D5W 100UNITS/ML 250 ML IV SCH ×3 (07:30→16:10)
[2017-01-05 08:00] VITALS: BP 111/62
[2017-01-05] MEDS: CALCIUM ACETATE 667 MG CAP PO SCH ×3 (08:00→17:48)
[2017-01-05] MEDS: CARVEDILOL 3.125 MG TAB PO SCH ×2 (10:00→21:18)
[2017-01-05] MEDS ORDERED: LIDOCAINE 2%HCL (LOCAL ANESTH.) INJ 20ML MDV ONE (11:14)
[2017-01-05] MEDS: NITROGLYCERIN 0.2MG/HR TOPICAL PATCH TD SCH (11:14)
[2017-01-05 11:51] VITALS: BP 150/78
[2017-01-05 13:23] LABS: INR 0.93 (0.9-1.15); Partial Thromboplastin Time 30.6 sec (22.64-33.71); Prothrombin Time 10.1 sec (9.37-12.3)
[2017-01-05] MEDS ORDERED: MIDAZOLAM HCL 1MG/1ML-2 ML VIAL ONE (13:55)
[2017-01-05] MEDS ORDERED: fentaNYL CITRATE 100 MCG/2 ML VL ONE (13:55)
[2017-01-05] MEDS ORDERED: HEPARIN SODIUM (PORCINE) 5000 UNITS/ML 1ML VIAL ONE (14:30)
[2017-01-05] MEDS: MORPHINE SULFATE 4 MG/ML SYRG IV PRN (15:11)
[2017-01-05] MEDS ORDERED: HEPARIN 1,000 UNITS/ml 1ML VIAL IV ONE ×2 (16:15→18:00)
[2017-01-05] MEDS ORDERED: EPOETIN ALFA 10,000 UNIT/1 ML VIAL IV ONE (16:15)
[2017-01-05 16:20] VITALS: BP 142/55
[2017-01-05] MEDS: CLOPIDOGREL BISULFATE 75 MG TAB PO SCH (16:21)
[2017-01-05] MEDS: DOCUSATE SOD 100 MG CAP PO SCH (16:21)
[2017-01-05] MEDS: ASPirin 81 mg TAB PO SCH (16:21)
[2017-01-05] MEDS: MULTIPLE VITAMIN TAB PO SCH (16:21)
[2017-01-05] MEDS: PANTOPRAZOLE 40 MG TAB PO SCH (16:21)
[2017-01-05] MEDS: TAMSULOSIN HYDROCHLORIDE 0.4 MG CAP PO SCH (17:48)
[2017-01-05 19:45] VITALS: BP 111/75
[2017-01-05 20:10] VITALS: BP 142/55
[2017-01-05] MEDS: ATORVASTATIN 20 MG TAB PO SCH (21:18)
[2017-01-05 22:00] VITALS: BP 155/83
[2017-01-06] MEDS: methylPREDNISolone SOD SUCC 40 MG/ML VL IV SCH ×3 (00:07→11:44)
[2017-01-06] MEDS: InsuLIN REG 1unit/0.01ml Soln (100units/ml) SC SCH ×4 (00:07→18:16)
[2017-01-06] MEDS: ACCU-CHEK COMFORT CURVE STRIP VI SCH ×4 (00:07→18:02)
[2017-01-06] MEDS: ALBUTEROL SULF 2.5 MG/0.5ML(0.5%) NEB SOLN NEB SCH ×3 (00:54→18:05)
[2017-01-06] MEDS: IPRATROPIUM BROM 0.5 MG/2.5ML INH SOL NEB SCH ×4 (00:54→18:05)
[2017-01-06 05:00] VITALS: BP 149/79
[2017-01-06 05:46] LABS: Albumin 2.5 g/dL (3.4-5.0); BUN/Creatinine Ratio 14.1; Calcium 7.2 mg/dL (8.5-10.1); Potassium 5.1 mmol/L (3.5-5.1)
[2017-01-06 05:49] LABS: Bilirubin, Total 0.2 mg/dL (0.2-1.0); Total Protein 6.4 g/dL (6.4-8.2)
[2017-01-06] MEDS: MORPHINE SULF 15mg ER tab PO SCH ×3 (06:08→21:42)
[2017-01-06] MEDS: BUMETANIDE (0.25 MG/ML) INJ 10ML IV SCH (06:26)
[2017-01-06] MEDS ORDERED: IODIXANOL 320MG/ML 100ML BTL IV ONE (07:54)
[2017-01-06] MEDS: CALCIUM ACETATE 667 MG CAP PO SCH ×3 (08:00→18:16)
[2017-01-06 09:00] VITALS: BP 157/79
[2017-01-06] MEDS: NITROGLYCERIN 0.2MG/HR TOPICAL PATCH TD SCH (10:00)
[2017-01-06] MEDS: DOCUSATE SOD 100 MG CAP PO SCH (10:00)
[2017-01-06] MEDS: CARVEDILOL 3.125 MG TAB PO SCH ×2 (10:00→21:43)
[2017-01-06] MEDS: PANTOPRAZOLE 40 MG TAB PO SCH (10:00)
[2017-01-06] MEDS: ASPirin 81 mg TAB PO SCH (10:00)
[2017-01-06] MEDS: CLOPIDOGREL BISULFATE 75 MG TAB PO SCH (10:00)
[2017-01-06] MEDS: MULTIPLE VITAMIN TAB PO SCH (10:00)
[2017-01-06] MEDS: LIDOCAINE 2%HCL (LOCAL ANESTH.) INJ 20ML MDV ONE ×2 (11:42→11:54)
[2017-01-06] MEDS: VERAPAMIL 2.5MG/ML INJ 2ML VIAL IV ONE ×2 (11:46→13:11)
[2017-01-06] MEDS: MIDAZOLAM HCL 1MG/1ML-2 ML VIAL ONE ×2 (11:52→13:12)
[2017-01-06] MEDS: fentaNYL CITRATE 100 MCG/2 ML VL ONE ×2 (11:52→13:12)
[2017-01-06] MEDS: ATROPINE SULF 0.5 MG/5ML SYR ONE ×2 (12:15→13:12)
[2017-01-06] MEDS: PRASUGREL HCL 10 MG TAB ONE ×2 (12:45→13:12)
[2017-01-06 13:00] VITALS: BP 149/74
[2017-01-06 13:51] LABS: Basophils # (auto) 0 uL; Basophils % (auto) 0.2 % (0.0-2.0); CONDITION Y; Eosinophils # (auto) 0 uL; Hematocrit 33.4 % (41.0-53.0); Hemoglobin 11.3 g/dL (13.5-17.5); Lymphocytes # (auto) 0.5 uL; Lymphocytes % (auto) 4.8 % (10.0-50.0); Mean Corpuscular Hemoglobin 32.9 pg (28.0-32.0); Mean Corpuscular Hgb Conc. 33.7 g/dL (32.0-36.0); Mean Corpuscular Volume 97.5 fL (80.0-100.0); Mean Platelet Volume 8.2 fL (7.4-10.4); Monocytes # (auto) 0.2 uL; Neutrophils # (auto) 9.2 uL; Platelet Count (auto) 381 10^3/uL (140-450); Red Cell Distribution Width 14.1 % (11.6-16.0); White Blood Cell 9.9 10^3/uL (4.4-10.8)
[2017-01-06 14:00] LABS: INR 1.41 (0.9-1.15); Partial Thromboplastin Time 53.9 sec (22.64-33.71); Prothrombin Time 15.4 sec (9.37-12.3)
[2017-01-06] MEDS: MORPHINE SULFATE 4 MG/ML SYRG IV PRN (16:09)
[2017-01-06 16:11] LABS: Sjogren's Anti-SS-A Antibody <0.2 AI (0.0-0.9)
[2017-01-06 17:00] VITALS: BP 159/84
[2017-01-06] MEDS ORDERED: WARFARIN SODIUM 2 MG TAB PO ONE (17:15)
[2017-01-06] MEDS: TAMSULOSIN HYDROCHLORIDE 0.4 MG CAP PO SCH (18:16)
[2017-01-06 21:30] VITALS: BP 126/53
[2017-01-06] MEDS: ATORVASTATIN 20 MG TAB PO SCH (21:41)
[2017-01-07] MEDS: ACCU-CHEK COMFORT CURVE STRIP VI SCH ×4 (00:23→17:17)
[2017-01-07] MEDS: ALBUTEROL SULF 2.5 MG/0.5ML(0.5%) NEB SOLN NEB SCH ×4 (01:01→18:38)
[2017-01-07] MEDS: IPRATROPIUM BROM 0.5 MG/2.5ML INH SOL NEB SCH ×4 (01:01→18:37)
[2017-01-07 03:16] LABS: Basophils # (auto) 0.1 uL; Basophils % (auto) 0.9 % (0.0-2.0); CONDITION Y; Eosinophils # (auto) 0 uL; Eosinophils % (auto) 0.1 % (0.0-7.0); Hematocrit 32.7 % (41.0-53.0); Hemoglobin 11.1 g/dL (13.5-17.5); Lymphocytes # (auto) 2.1 uL; Lymphocytes % (auto) 16.1 % (10.0-50.0); Mean Corpuscular Hemoglobin 32.9 pg (28.0-32.0); Mean Corpuscular Hgb Conc. 33.9 g/dL (32.0-36.0); Mean Corpuscular Volume 97.1 fL (80.0-100.0); Mean Platelet Volume 7.9 fL (7.4-10.4); Monocytes # (auto) 0.9 uL; Neutrophils # (auto) 9.7 uL; Neutrophils % (auto) 75.9 % (37.0-80.0); Platelet Count (auto) 409 10^3/uL (140-450); Red Cell Distribution Width 13.6 % (11.6-16.0); White Blood Cell 12.8 10^3/uL (4.4-10.8)
[2017-01-07 03:31] LABS: INR 1.03 (0.9-1.15); Partial Thromboplastin Time 29.3 sec (22.64-33.71); Prothrombin Time 11.2 sec (9.37-12.3)
[2017-01-07] MEDS ORDERED: HEPARIN DRIP/D5W 100UNITS/ML 250 ML IV SCH (04:00)
[2017-01-07] MEDS ORDERED: HEPARIN SODIUM (PORCINE) 5000 UNITS/ML 1ML VIAL IV ONE (04:00)
[2017-01-07 04:13] LABS: Albumin 2.6 g/dL (3.4-5.0); BUN/Creatinine Ratio 15.3; Calcium 7.1 mg/dL (8.5-10.1); Potassium 4.5 mmol/L (3.5-5.1)
[2017-01-07] MEDS: MORPHINE SULFATE 4 MG/ML SYRG IV PRN (04:15)
[2017-01-07 04:16] LABS: Bilirubin, Total 0.2 mg/dL (0.2-1.0); Total Protein 6.3 g/dL (6.4-8.2)
[2017-01-07 05:00] VITALS: BP 149/74
[2017-01-07] MEDS: InsuLIN REG 1unit/0.01ml Soln (100units/ml) SC SCH ×4 (06:00→17:18)
[2017-01-07] MEDS: MORPHINE SULF 15mg ER tab PO SCH ×3 (06:08→21:50)
[2017-01-07] MEDS: CALCIUM ACETATE 667 MG CAP PO SCH ×3 (08:02→18:16)
[2017-01-07 08:41] VITALS: BP 128/66
[2017-01-07 09:58] LABS: INR 1.03 (0.9-1.15); Partial Thromboplastin Time 38.1 sec (22.64-33.71); Prothrombin Time 11.2 sec (9.37-12.3)
[2017-01-07] MEDS ORDERED: BUMETANIDE (0.25 MG/ML) INJ 10ML IV SCH (10:00)
[2017-01-07] MEDS: NITROGLYCERIN 0.2MG/HR TOPICAL PATCH TD SCH (10:00)
[2017-01-07] MEDS: DOCUSATE SOD 100 MG CAP PO SCH (10:26)
[2017-01-07] MEDS: PANTOPRAZOLE 40 MG TAB PO SCH (10:26)
[2017-01-07] MEDS: CLOPIDOGREL BISULFATE 75 MG TAB PO SCH (10:27)
[2017-01-07] MEDS: MULTIPLE VITAMIN TAB PO SCH (10:27)
[2017-01-07] MEDS: ASPirin 81 mg TAB PO SCH (10:27)
[2017-01-07] MEDS: BUMETANIDE (0.25MG/ML) 4 ML VIAL IV SCH (10:31)
[2017-01-07] MEDS: CARVEDILOL 3.125 MG TAB PO SCH ×2 (10:34→21:48)
[2017-01-07] MEDS ORDERED: EPOETIN ALFA 10,000 UNIT/1 ML VIAL IV ONE (11:30)
[2017-01-07] MEDS ORDERED: SODIUM CHL 0.9% 1000 ML BAG XX ONE (11:30)
[2017-01-07] MEDS: HEPARIN DRIP/D5W 100UNITS/ML 250 ML IV SCH (11:36)
[2017-01-07 12:25] VITALS: BP 114/57
[2017-01-07 16:50] VITALS: BP 140/68
[2017-01-07] MEDS ORDERED: WARFARIN SODIUM 2.5 MG TAB PO ONE (17:00)
[2017-01-07] MEDS: TAMSULOSIN HYDROCHLORIDE 0.4 MG CAP PO SCH (17:17)
[2017-01-07] MEDS: ATORVASTATIN 20 MG TAB PO SCH (21:48)
[2017-01-07 22:00] VITALS: BP 139/70
[2017-01-08] MEDS: ALBUTEROL SULF 2.5 MG/0.5ML(0.5%) NEB SOLN NEB SCH ×4 (00:19→18:39)
[2017-01-08] MEDS: IPRATROPIUM BROM 0.5 MG/2.5ML INH SOL NEB SCH ×4 (00:19→18:39)
[2017-01-08] MEDS: InsuLIN REG 1unit/0.01ml Soln (100units/ml) SC SCH ×5 (00:38→23:14)
[2017-01-08] MEDS: HEPARIN DRIP/D5W 100UNITS/ML 250 ML IV SCH (00:49)
[2017-01-08 05:00] VITALS: BP 161/76
[2017-01-08 05:55] LABS: Potassium 4.2 mmol/L (3.5-5.1)
[2017-01-08 05:56] LABS: INR 1.28 (0.9-1.15); Partial Thromboplastin Time 57.7 sec (22.64-33.71)
[2017-01-08] MEDS: MORPHINE SULF 15mg ER tab PO SCH ×2 (05:58→22:59)
[2017-01-08 06:02] LABS: Albumin 2.3 g/dL (3.4-5.0); BUN/Creatinine Ratio 13.8; Bilirubin, Total 0.2 mg/dL (0.2-1.0); Total Protein 6.1 g/dL (6.4-8.2)
[2017-01-08] MEDS: ACCU-CHEK COMFORT CURVE STRIP VI SCH ×5 (06:02→23:14)
[2017-01-08 06:05] VITALS: BP 145/75
[2017-01-08] MEDS: CALCIUM ACETATE 667 MG CAP PO SCH ×3 (08:00→18:08)
[2017-01-08 09:00] VITALS: BP 150/74
[2017-01-08] MEDS: BUMETANIDE (0.25MG/ML) 4 ML VIAL IV SCH (09:53)
[2017-01-08] MEDS: ASPirin 81 mg TAB PO SCH (09:53)
[2017-01-08] MEDS: CARVEDILOL 3.125 MG TAB PO SCH ×2 (09:54→23:13)
[2017-01-08] MEDS: NITROGLYCERIN 0.2MG/HR TOPICAL PATCH TD SCH (09:54)
[2017-01-08] MEDS: MULTIPLE VITAMIN TAB PO SCH (09:54)
[2017-01-08] MEDS: CLOPIDOGREL BISULFATE 75 MG TAB PO SCH (09:54)
[2017-01-08] MEDS: PANTOPRAZOLE 40 MG TAB PO SCH (09:54)
[2017-01-08] MEDS: DOCUSATE SOD 100 MG CAP PO SCH (09:55)
[2017-01-08 11:37] LABS: Basophils # (auto) 0.1 uL; Basophils % (auto) 0.8 % (0.0-2.0); CONDITION Y; Eosinophils # (auto) 0.3 uL; Eosinophils % (auto) 2.3 % (0.0-7.0); Hematocrit 30.5 % (41.0-53.0); Hemoglobin 10.2 g/dL (13.5-17.5); Lymphocytes # (auto) 1.8 uL; Lymphocytes % (auto) 15.4 % (10.0-50.0); Mean Corpuscular Hemoglobin 32.8 pg (28.0-32.0); Mean Corpuscular Hgb Conc. 33.6 g/dL (32.0-36.0); Mean Corpuscular Volume 97.8 fL (80.0-100.0); Mean Platelet Volume 7.9 fL (7.4-10.4); Monocytes % (auto) 8.9 % (0.0-12.0); Neutrophils # (auto) 8.5 uL; Neutrophils % (auto) 72.6 % (37.0-80.0); Platelet Count (auto) 384 10^3/uL (140-450); Red Cell Distribution Width 13.7 % (11.6-16.0); White Blood Cell 11.7 10^3/uL (4.4-10.8)
[2017-01-08 11:48] LABS: INR 1.44 (0.9-1.15); Partial Thromboplastin Time 50.5 sec (22.64-33.71); Prothrombin Time 15.8 sec (9.37-12.3)
[2017-01-08 12:18] VITALS: BP 159/80
[2017-01-08] MEDS: MORPHINE SULFATE 4 MG/ML SYRG IV PRN (13:38)
[2017-01-08] MEDS ORDERED: EPOETIN ALFA 3,000 UNIT/1 ML VIAL IV ONE (15:00)
[2017-01-08] MEDS: LISINOPRIL 10 MG TAB PO SCH (16:27)
[2017-01-08 16:51] VITALS: BP 139/65
[2017-01-08] MEDS ORDERED: WARFARIN SODIUM 2.5 MG TAB PO ONE (17:00)
[2017-01-08] MEDS: TAMSULOSIN HYDROCHLORIDE 0.4 MG CAP PO SCH (18:08)
[2017-01-08 21:50] VITALS: BP 132/65
[2017-01-08] MEDS: PRO-STAT 64 30ML PO SCH (22:00)
[2017-01-08] MEDS: Novasource Renal 8 Ounces PO SCH (22:00)
[2017-01-08] MEDS: ATORVASTATIN 20 MG TAB PO SCH (23:00)
[2017-01-09] MEDS: ALBUTEROL SULF 2.5 MG/0.5ML(0.5%) NEB SOLN NEB SCH ×3 (00:34→12:22)
[2017-01-09] MEDS: IPRATROPIUM BROM 0.5 MG/2.5ML INH SOL NEB SCH ×3 (00:34→12:22)
[2017-01-09 03:12] VITALS: BP 133/73
[2017-01-09 05:15] VITALS: BP 133/70
[2017-01-09] MEDS: HEPARIN DRIP/D5W 100UNITS/ML 250 ML IV SCH (05:26)
[2017-01-09] MEDS: InsuLIN REG 1unit/0.01ml Soln (100units/ml) SC SCH ×2 (05:26→11:36)
[2017-01-09] MEDS: ACCU-CHEK COMFORT CURVE STRIP VI SCH ×2 (05:26→11:36)
[2017-01-09 06:32] LABS: Basophils # (auto) 0 uL; Basophils % (auto) 0.3 % (0.0-2.0); CONDITION Y; Eosinophils # (auto) 0.5 uL; Eosinophils % (auto) 4.3 % (0.0-7.0); Hematocrit 29.1 % (41.0-53.0); Lymphocytes # (auto) 1.5 uL; Lymphocytes % (auto) 13.6 % (10.0-50.0); Mean Corpuscular Hemoglobin 33.4 pg (28.0-32.0); Mean Corpuscular Hgb Conc. 34.3 g/dL (32.0-36.0); Mean Corpuscular Volume 97.4 fL (80.0-100.0); Mean Platelet Volume 8.5 fL (7.4-10.4); Neutrophils # (auto) 8.2 uL; Neutrophils % (auto) 72.8 % (37.0-80.0); Platelet Count (auto) 377 10^3/uL (140-450); Red Cell Distribution Width 13.6 % (11.6-16.0); White Blood Cell 11.3 10^3/uL (4.4-10.8)
[2017-01-09 06:41] LABS: INR 2.01 (0.9-1.15); Partial Thromboplastin Time 67.5 sec (22.64-33.71); Prothrombin Time 22.1 sec (9.37-12.3)
[2017-01-09 06:58] LABS: BUN/Creatinine Ratio 14.2; Calcium 7.6 mg/dL (8.5-10.1); Potassium 4.4 mmol/L (3.5-5.1)
[2017-01-09] MEDS: CALCIUM ACETATE 667 MG CAP PO SCH ×2 (07:36→12:58)
[2017-01-09] MEDS ORDERED: EPOETIN ALFA 3,000 UNIT/1 ML VIAL IV ONE (08:00)
[2017-01-09] MEDS ORDERED: EPOETIN ALFA 10,000 UNIT/1 ML VIAL IV ONE (08:00)
[2017-01-09] MEDS ORDERED: SODIUM CHL 0.9% 1000 ML BAG XX ONE (08:00)
[2017-01-09] MEDS ORDERED: EPOETIN ALFA 2,000 UNIT/1 ML VIAL IV ONE ×2 (08:00→09:30)
[2017-01-09 09:00] VITALS: BP 129/57
[2017-01-09] MEDS: DOCUSATE SOD 100 MG CAP PO SCH (10:00)
[2017-01-09] MEDS: NITROGLYCERIN 0.2MG/HR TOPICAL PATCH TD SCH (10:00)
[2017-01-09] MEDS: LISINOPRIL 10 MG TAB PO SCH (10:00)
[2017-01-09] MEDS: ASPirin 81 mg TAB PO SCH (10:50)
[2017-01-09] MEDS: MULTIPLE VITAMIN TAB PO SCH (10:51)
[2017-01-09] MEDS: MORPHINE SULF 15mg ER tab PO SCH (10:51)
[2017-01-09] MEDS: PANTOPRAZOLE 40 MG TAB PO SCH (10:53)
[2017-01-09] MEDS: Novasource Renal 8 Ounces PO SCH (10:53)
[2017-01-09] MEDS: CARVEDILOL 3.125 MG TAB PO SCH (10:53)
[2017-01-09] MEDS: PRO-STAT 64 30ML PO SCH (10:53)
[2017-01-09] MEDS: CLOPIDOGREL BISULFATE 75 MG TAB PO SCH (10:54)
[2017-01-09] MEDS ORDERED: TEMAZEPAM 15 MG CAP PO PRN (11:00)
[2017-01-09] MEDS ORDERED: HYDROcodone-ACET 5/325MG TAB PO PRN (11:00)
[2017-01-09] MEDS ORDERED: MORPHINE SULFATE 4 MG/ML SYRG IV PRN (11:00)
[2017-01-09] MEDS ORDERED: LORazepam 0.5 MG TAB PO PRN (11:00)
[2017-01-09 13:00] VITALS: BP 124/62
[2017-01-09] MEDS ORDERED: WARF2TAB55 PO (15:01)
[2017-01-09] MEDS ORDERED: LISI10TA6 PO (15:01)
[2017-01-09] MEDS ORDERED: ALBUAER3 IN (15:01)
[2017-01-09] MEDS ORDERED: CAR3125T PO (15:01)
[2017-01-09] MEDS ORDERED: CLOP75TA28 PO (15:01)
[2017-01-09 15:02] LABS: INR 2.52 (0.9-1.15); Partial Thromboplastin Time 58.9 sec (22.64-33.71); Prothrombin Time 27.7 sec (9.37-12.3)
[2017-01-09 16:42] VITALS: BP 112/48
[2017-01-09] MEDS ORDERED: WARFARIN SODIUM 2 MG TAB PO ONE (17:00)
[2017-01-09 17:44] VITALS: BP 129/57
[2017-01-10 11:07] LABS: Vitamin D 25-Hydroxy 38 ng/mL (.); Vitamin D-2 25-Hydroxy 32 ng/mL (.)
== END 2017-01-09 18:30 | disposition home health service (06) | DRG 174 ==
LOC: ER 10:22 → EDBD 10:22 → EDUNIT# 10:22 → TELE 10:23 → ICU WEST 19:03 → DOU IN ICU 01-03 16:05 → TELE-CENTR 01-05 21:47
PROVIDERS: ADMIT Internal Medicine; ATTEND Internal Medicine
PROC: 02H633Z Insertion of Infusion Device into Right Atrium, Percutaneous Approach (ICD-10-PCS; 2017-01-05)
PROC: B244ZZZ Ultrasonography of Right Heart (ICD-10-PCS; 2017-01-05)
PROC: 5A1D60Z (ICD-10-PCS; 2017-01-05)
PROC: B2141ZZ Fluoroscopy of Right Heart using Low Osmolar Contrast (ICD-10-PCS; 2017-01-05)
PROC: 02703EZ Dilation of Coronary Artery, One Artery with Two Intraluminal Devices, Percutaneous Approach (ICD-10-PCS; principal; 2017-01-06)
PROC: 4A023N7 Measurement of Cardiac Sampling and Pressure, Left Heart, Percutaneous Approach (ICD-10-PCS; 2017-01-06)
PROC: B2111ZZ Fluoroscopy of Multiple Coronary Arteries using Low Osmolar Contrast (ICD-10-PCS; 2017-01-06)
PROC: B41J1ZZ Fluoroscopy of Other Lower Arteries using Low Osmolar Contrast (ICD-10-PCS; 2017-01-06)
DX: I21.4 Non-ST elevation (NSTEMI) myocardial infarction (principal); J96.00 Acute respiratory failure, unspecified whether with hypoxia or hypercapnia; E43 Unspecified severe protein-calorie malnutrition; N17.9 Acute kidney failure, unspecified; I50.43 Acute on chronic combined systolic (congestive) and diastolic (congestive) heart failure; J18.1 Lobar pneumonia, unspecified organism; N18.6 End stage renal disease; E11.22 Type 2 diabetes mellitus with diabetic chronic kidney disease; I12.9 Hypertensive chronic kidney disease with stage 1 through stage 4 chronic kidney disease, or unspecified chronic kidney disease; B19.20 Unspecified viral hepatitis C without hepatic coma; D63.8 Anemia in other chronic diseases classified elsewhere; E78.5 Hyperlipidemia, unspecified; E87.5 Hyperkalemia; F17.210 Nicotine dependence, cigarettes, uncomplicated; G89.4 Chronic pain syndrome; I82.413 Acute embolism and thrombosis of femoral vein, bilateral; I25.10 Atherosclerotic heart disease of native coronary artery without angina pectoris; I25.5 Ischemic cardiomyopathy; I73.9 Peripheral vascular disease, unspecified; K59.00 Constipation, unspecified; Z79.82 Long term (current) use of aspirin; Z82.3 Family history of stroke; Z82.49 Family history of ischemic heart disease and other diseases of the circulatory system; Z99.2 Dependence on renal dialysis; Z83.3 Family history of diabetes mellitus; Z79.899 Other long term (current) drug therapy; Z71.89 Other specified counseling; Z71.6 Tobacco abuse counseling; Z68.23 Body mass index [BMI] 23.0-23.9, adult; Z71.3 Dietary counseling and surveillance
CPT/HCPCS: 92928; 93458; 96365; 96366; 96368; 96372; 96375; 99291; G0278; 36415; 71010; 71020; 71250; 74176; 76942; 78582; 80048; 80053; 80061; 80307; 81001; 82306; 82550; 82570; 82784; 82962; 83036; 83516; 83605; 83735; 83880; 83970; 84100; 84156; 84300; 84443; 84484; 84550; 85025; 85379; 85610; 85652; 85730; 86141; 86160; 86225; 86235; 86334; 86335; 86592; 86803; 87040; 87070; 87081; 87205; 87340; 90935; 93005; 93306; 93970; 94640; 99152; 99153; C1729; C1874; C1887; J0461; J0696; J0885; J1642; J1815; J1956; J2250; J2405; Q4081; Q9967

== ENCOUNTER 2017-01-18 07:35 | Inpatient (IN) | payer MEDICAID ==
[~2017-01-18] VITALS: Ht 167.6 cm; Wt 65.4 kg
[~2017-01-18 07:35] MED LIST changes: +ALBUAER3 IN; +CAR3125T PO; +CLOP75TA28 PO; -LEVO250T45 PO; +LISI10TA6 PO; +WARF2TAB55 PO
[2017-01-18 09:10] LABS: Basophils # (auto) 0 uL; Basophils % (auto) 0.4 % (0.0-2.0); CONDITION Y; Eosinophils # (auto) 0.5 uL; Eosinophils % (auto) 4.5 % (0.0-7.0); Hematocrit 30.2 % (41.0-53.0); Hemoglobin 10.4 g/dL (13.5-17.5); Lymphocytes # (auto) 1.5 uL; Lymphocytes % (auto) 14.3 % (10.0-50.0); Mean Corpuscular Hemoglobin 33.3 pg (28.0-32.0); Mean Corpuscular Hgb Conc. 34.3 g/dL (32.0-36.0); Mean Corpuscular Volume 96.9 fL (80.0-100.0); Mean Platelet Volume 7.3 fL (7.4-10.4); Monocytes # (auto) 0.7 uL; Monocytes % (auto) 6.5 % (0.0-12.0); Neutrophils % (auto) 74.3 % (37.0-80.0); Platelet Count (auto) 404 10^3/uL (140-450); Red Cell Distribution Width 13.6 % (11.6-16.0); White Blood Cell 10.8 10^3/uL (4.4-10.8)
[2017-01-18 09:28] LABS: INR 2.1 (0.9-1.15); Partial Thromboplastin Time 41.8 sec (22.64-33.71); Prothrombin Time 23.1 sec (9.37-12.3)
[2017-01-18 09:41] LABS: BUN/Creatinine Ratio 7.8; Calcium 7.3 mg/dL (8.5-10.1); Potassium 4.3 mmol/L (3.5-5.1)
[2017-01-18] MEDS ORDERED: PHYTONADIONE ORAL Susp 10 mg/10ml PO ONE (10:30)
[2017-01-18] MEDS ORDERED: CARVEDILOL 3.125 MG TAB PO ONE (10:45)
[2017-01-18] MEDS ORDERED: MULTIPLE VITAMIN TAB PO ONE (10:45)
[2017-01-18] MEDS ORDERED: TEMAZEPAM 15 MG CAP PO PRN (10:45)
[2017-01-18] MEDS ORDERED: ALBUTEROL SULF 2.5 MG/0.5ML(0.5%) NEB SOLN NEB PRN ×2 (10:45→12:00)
[2017-01-18] MEDS ORDERED: NITROGLYCERIN 0.4 MG SL TAB SL PRN (10:45)
[2017-01-18] MEDS ORDERED: PROMETHAZINE HCL 25 MG/ML 1ML IV PRN (10:45)
[2017-01-18] MEDS ORDERED: FAMOTIDINE 20 MG TAB PO ONE (10:45)
[2017-01-18] MEDS ORDERED: MORPHINE SULF INJ 2 MG/ML SYRINGE 1ML IV PRN ×2 (10:45)
[2017-01-18] MEDS ORDERED: HYDROcodone-ACET 5/325MG TAB PO PRN (10:45)
[2017-01-18] MEDS ORDERED: LISINOPRIL 10 MG TAB PO ONE (10:45)
[2017-01-18] MEDS ORDERED: DOCUSATE SOD 100 MG CAP PO ONE (10:45)
[2017-01-18] MEDS ORDERED: LACTULOSE 20Gm/30ML SOLN PO PRN (10:45)
[2017-01-18] MEDS ORDERED: LORazepam 0.5 MG TAB PO PRN (10:45)
[2017-01-18] MEDS ORDERED: BUMETANIDE 1 MG TAB PO ONE (10:45)
[2017-01-18] MEDS ORDERED: ACETAMINOPHEN 500 MG TAB PO PRN (10:45)
[2017-01-18] MEDS: CALCIUM ACETATE 667 MG CAP PO SCH ×2 (12:01→18:17)
[2017-01-18 12:06] VITALS: BP 155/74
[2017-01-18 13:00] VITALS: BP 121/52
[2017-01-18] MEDS: SODIUM CHLOR 0.9% PF (SALINE LOCK) 10ML VIAL IV SCH ×2 (14:06→21:43)
[2017-01-18 17:00] VITALS: BP 126/53
[2017-01-18] MEDS: TAMSULOSIN HYDROCHLORIDE 0.4 MG CAP PO SCH (18:17)
[2017-01-18 19:20] VITALS: BP 142/68
[2017-01-18] MEDS: ATORVASTATIN 20 MG TAB PO SCH (21:43)
[2017-01-18] MEDS: CARVEDILOL 3.125 MG TAB PO SCH (21:43)
[2017-01-18 22:25] VITALS: BP 120/55
[2017-01-19 05:00] VITALS: BP 144/70
[2017-01-19] MEDS: SODIUM CHLOR 0.9% PF (SALINE LOCK) 10ML VIAL IV SCH ×3 (05:37→21:54)
[2017-01-19 05:52] LABS: Basophils # (auto) 0.2 uL; Basophils % (auto) 1.4 % (0.0-2.0); Eosinophils # (auto) 0.6 uL; Eosinophils % (auto) 5.4 % (0.0-7.0); Hematocrit 29.5 % (41.0-53.0); Hemoglobin 10.1 g/dL (13.5-17.5); Lymphocytes # (auto) 1.9 uL; Lymphocytes % (auto) 17.9 % (10.0-50.0); Mean Corpuscular Hemoglobin 33.2 pg (28.0-32.0); Mean Corpuscular Hgb Conc. 34.1 g/dL (32.0-36.0); Mean Corpuscular Volume 97.2 fL (80.0-100.0); Mean Platelet Volume 7.2 fL (7.4-10.4); Monocytes # (auto) 0.8 uL; Monocytes % (auto) 7.6 % (0.0-12.0); Neutrophils # (auto) 7.1 uL; Neutrophils % (auto) 67.7 % (37.0-80.0); Platelet Count (auto) 323 10^3/uL (140-450); Red Cell Distribution Width 13.5 % (11.6-16.0); White Blood Cell 10.5 10^3/uL (4.4-10.8)
[2017-01-19 06:05] LABS: INR 1.24 (0.9-1.15); Prothrombin Time 13.5 sec (9.37-12.3)
[2017-01-19 06:19] LABS: Albumin 2.3 g/dL (3.4-5.0); Calcium 7.5 mg/dL (8.5-10.1); Potassium 4.5 mmol/L (3.5-5.1)
[2017-01-19 06:21] LABS: BUN/Creatinine Ratio 10.1
[2017-01-19 06:23] LABS: Bilirubin, Total 0.3 mg/dL (0.2-1.0); Total Protein 5.8 g/dL (6.4-8.2)
[2017-01-19 08:00] VITALS: BP 139/64
[2017-01-19] MEDS: CALCIUM ACETATE 667 MG CAP PO SCH ×3 (08:28→17:51)
[2017-01-19] MEDS: MULTIPLE VITAMIN TAB PO SCH (09:27)
[2017-01-19] MEDS: CARVEDILOL 3.125 MG TAB PO SCH ×2 (09:28→21:57)
[2017-01-19] MEDS: DOCUSATE SOD 100 MG CAP PO SCH (09:28)
[2017-01-19] MEDS: LISINOPRIL 10 MG TAB PO SCH (09:29)
[2017-01-19] MEDS: BUMETANIDE 1 MG TAB PO SCH (09:29)
[2017-01-19] MEDS: FAMOTIDINE 20 MG TAB PO SCH (09:29)
[2017-01-19 12:00] VITALS: BP 118/48
[2017-01-19] MEDS ORDERED: CLOPIDOGREL BISULFATE 75 MG TAB PO ONE (12:45)
[2017-01-19 17:16] VITALS: BP 136/57
[2017-01-19] MEDS: TAMSULOSIN HYDROCHLORIDE 0.4 MG CAP PO SCH (17:51)
[2017-01-19] MEDS ORDERED: ALBUTEROL SULF 2.5 MG/0.5ML(0.5%) NEB SOLN NEB PRN (18:15)
[2017-01-19] MEDS ORDERED: WARFARIN SODIUM 5 MG TAB PO ONE (18:45)
[2017-01-19] MEDS: ATORVASTATIN 20 MG TAB PO SCH (21:57)
[2017-01-19 22:00] VITALS: BP 151/71
[2017-01-19 22:20] LABS: Urine Bilirubin Negative (Negative); Urine Blood TRACE /uL (Negative); Urine Color Yellow (Yellow); Urine Glucose 2+ mg/dL (Normal); Urine Ketone Negative (Negative); Urine Nitrite Negative (Negative); Urine RBC 1 /hpf (0 - 3); Urine Squamous Epithelial Cell FEW /hpf (<5); Urine Urobilinogen Normal (Negative); Urine pH 7.5 (5.0-8.0)
[2017-01-20] MEDS: SODIUM CHLOR 0.9% PF (SALINE LOCK) 10ML VIAL IV SCH ×2 (05:47→14:16)
[2017-01-20 06:02] LABS: Basophils # (auto) 0.1 uL; Eosinophils # (auto) 0.6 uL; Eosinophils % (auto) 4.8 % (0.0-7.0); Hemoglobin 9.9 g/dL (13.5-17.5); Lymphocytes # (auto) 1.6 uL; Lymphocytes % (auto) 13.3 % (10.0-50.0); Mean Corpuscular Hemoglobin 33.1 pg (28.0-32.0); Mean Corpuscular Hgb Conc. 34.1 g/dL (32.0-36.0); Mean Platelet Volume 7.4 fL (7.4-10.4); Monocytes # (auto) 0.7 uL; Monocytes % (auto) 5.7 % (0.0-12.0); Neutrophils # (auto) 9.2 uL; Neutrophils % (auto) 75.2 % (37.0-80.0); Platelet Count (auto) 344 10^3/uL (140-450); Red Cell Distribution Width 13.2 % (11.6-16.0); White Blood Cell 12.2 10^3/uL (4.4-10.8)
[2017-01-20 06:12] VITALS: BP 155/78
[2017-01-20 06:14] LABS: INR 1.05 (0.9-1.15); Prothrombin Time 11.5 sec (9.37-12.3)
[2017-01-20 06:31] LABS: Calcium 7.8 mg/dL (8.5-10.1); Magnesium 2.3 mg/dL (1.6-2.6); Potassium 4.7 mmol/L (3.5-5.1)
[2017-01-20 06:32] LABS: BUN/Creatinine Ratio 11.4
[2017-01-20 07:30] VITALS: BP 170/67
[2017-01-20 07:39] VITALS: BP 170/67
[2017-01-20] MEDS: CALCIUM ACETATE 667 MG CAP PO SCH ×2 (08:28→12:00)
[2017-01-20] MEDS ORDERED: EPOETIN ALFA 10,000 UNIT/1 ML VIAL IV ONE (09:30)
[2017-01-20] MEDS ORDERED: HEPARIN 1,000 UNITS/ml 1ML VIAL IV ONE (09:30)
[2017-01-20] MEDS ORDERED: CLOPIDOGREL BISULFATE 75 MG TAB PO SCH (10:00)
[2017-01-20] MEDS: DOCUSATE SOD 100 MG CAP PO SCH (10:00)
[2017-01-20] MEDS ORDERED: MORPHINE SULF INJ 2 MG/ML SYRINGE 1ML IV ONE (10:15)
[2017-01-20] MEDS ORDERED: HEPARIN SODIUM (PORCINE) 5000 UNITS/ML 1ML VIAL IV ONE (10:30)
[2017-01-20] MEDS ORDERED: metroNIDAZOLE 500 MG TAB PO ONE (11:00)
[2017-01-20 12:00] VITALS: BP 128/66
[2017-01-20] MEDS ORDERED: metroNIDAZOLE 500 MG TAB PO SCH (14:00)
[2017-01-20] MEDS: FAMOTIDINE 20 MG TAB PO SCH (14:13)
[2017-01-20] MEDS: MULTIPLE VITAMIN TAB PO SCH (14:13)
[2017-01-20] MEDS: BUMETANIDE 1 MG TAB PO SCH (14:14)
[2017-01-20] MEDS: CARVEDILOL 3.125 MG TAB PO SCH (14:15)
[2017-01-20] MEDS: LISINOPRIL 10 MG TAB PO SCH (14:16)
[2017-01-20] MEDS ORDERED: WARFARIN SODIUM 5 MG TAB PO ONE (17:00)
[2017-01-24] MEDS ORDERED: FENT25DI2 TD (16:31)
[2017-01-24] MEDS ORDERED: BUME1TAB25 PO (16:54)
[2017-01-24] MEDS ORDERED: MORP15TA PO (21:13)
[2017-01-25] MEDS ORDERED: CLOP75TA28 PO (13:43)
[2017-01-25] MEDS ORDERED: ASPI81CH43 PO (13:43)
== END 2017-01-20 17:30 | disposition left against medical advice (07) | DRG 206 ==
LOC: ER 07:35 → TELE 07:36 → TELE-EAST 12:45
PROVIDERS: ADMIT Internal Medicine; ATTEND Internal Medicine
PROC: 5A1D00Z (ICD-10-PCS; principal; 2017-01-20)
DX: T82.838A Hemorrhage due to vascular prosthetic devices, implants and grafts, initial encounter (principal); I13.2 Hypertensive heart and chronic kidney disease with heart failure and with stage 5 chronic kidney disease, or end stage renal disease; N18.6 End stage renal disease; D68.9 Coagulation defect, unspecified; E44.0 Moderate protein-calorie malnutrition; T45.525A Adverse effect of antithrombotic drugs, initial encounter; I25.5 Ischemic cardiomyopathy; D64.9 Anemia, unspecified; E78.5 Hyperlipidemia, unspecified; I25.10 Atherosclerotic heart disease of native coronary artery without angina pectoris; Z53.21 Procedure and treatment not carried out due to patient leaving prior to being seen by health care provider; B19.20 Unspecified viral hepatitis C without hepatic coma; I50.9 Heart failure, unspecified; J44.9 Chronic obstructive pulmonary disease, unspecified; Z99.2 Dependence on renal dialysis; Z86.718 Personal history of other venous thrombosis and embolism; I25.2 Old myocardial infarction; Z79.01 Long term (current) use of anticoagulants; Z72.0 Tobacco use; Z82.3 Family history of stroke; Y92.89 Other specified places as the place of occurrence of the external cause; Z68.23 Body mass index [BMI] 23.0-23.9, adult
CPT/HCPCS: 36415; 71010; 80048; 80053; 81001; 83735; 85025; 85610; 85730; 86850; 86900; 86901; 87045; 87493; 87899; 90935; 94640; J0885

== ENCOUNTER 2017-02-21 15:55 | Inpatient (IN) | payer MEDICAID ==
[~2017-02-21] VITALS: Ht 167.6 cm; Wt 55.6 kg
[~2017-02-21 15:55] MED LIST changes: +FENT25DI2 TD; -HYDR-4663 PO; +MORP15TA PO; -MULTTAB99 PO
[2017-02-21] MEDS ORDERED: ASPirin 81 mg TAB PO ONE (16:30)
[2017-02-21 16:42] LABS: Basophils # (auto) 0.1 uL; Basophils % (auto) 1.2 % (0.0-2.0); Eosinophils # (auto) 0.4 uL; Eosinophils % (auto) 3.6 % (0.0-7.0); Hematocrit 35.6 % (41.0-53.0); Hemoglobin 11.6 g/dL (13.5-17.5); Lymphocytes # (auto) 1.3 uL; Mean Corpuscular Hemoglobin 31.7 pg (28.0-32.0); Mean Corpuscular Hgb Conc. 32.7 g/dL (32.0-36.0); Mean Platelet Volume 7.1 fL (6.9-10.8); Monocytes # (auto) 0.7 uL; Neutrophils # (auto) 9.3 uL; Neutrophils % (auto) 78.2 % (37.0-80.0); Platelet Count (auto) 486 10^3/uL (140-450); Red Cell Distribution Width 14.3 % (11.8-14.3); White Blood Cell 11.9 10^3/uL (4.4-10.8)
[2017-02-21 16:52] LABS: INR 0.93 (0.9-1.15); Partial Thromboplastin Time 29.4 sec (22.64-33.71); Prothrombin Time 10.1 sec (9.37-12.3)
[2017-02-21 17:03] LABS: Albumin 2.5 g/dL (3.4-5.0); B-Type Natriuretic Peptide 2707.61 pg/mL (0-100); BUN/Creatinine Ratio 5.9; Bilirubin, Total 0.3 mg/dL (0.2-1.0); Calcium 7.8 mg/dL (8.5-10.1); Magnesium 2.1 mg/dL (1.6-2.6); Potassium 3.9 mmol/L (3.5-5.1); Total Protein 6.9 g/dL (6.4-8.2)
[2017-02-21 17:06] LABS: Temperature: 23.3 C (20.0-25.0)
[2017-02-21] MEDS ORDERED: ONDANSETRON HCL 4 MG/2 ML VIAL IV ONE (17:45)
[2017-02-21] MEDS ORDERED: MORPHINE SULF INJ 2 MG/ML SYRINGE 1ML IV ONE (17:45)
[2017-02-21] MEDS ORDERED: HYDROmorphone HCL 2 MG/ML VL IV ONE (23:30)
[2017-02-22] VITALS (7 sets, daily range): BP systolic 134–166; BP diastolic 72–77
[2017-02-22] MEDS ORDERED: MORPHINE SULF INJ 2 MG/ML SYRINGE 1ML IV PRN (00:15)
[2017-02-22] MEDS ORDERED: ONDANSETRON HCL 4 MG/2 ML VIAL IV PRN (00:15)
[2017-02-22] MEDS ORDERED: TEMAZEPAM 15 MG CAP PO PRN (00:15)
[2017-02-22] MEDS ORDERED: NITROGLYCERIN 0.4 MG SL TAB SL PRN (00:15)
[2017-02-22] MEDS ORDERED: ALBUTEROL SULF 2.5 MG/0.5ML(0.5%) NEB SOLN NEB PRN (00:15)
[2017-02-22] MEDS ORDERED: ACETAMINOPHEN 500 MG TAB PO PRN (00:15)
[2017-02-22] MEDS: MORPHINE SULF INJ 2 MG/ML SYRINGE 1ML IV PRN ×3 (04:01→21:10)
[2017-02-22 05:08] LABS: Urine Bilirubin Negative (Negative); Urine Blood Negative /uL (Negative); Urine Color Yellow (Yellow); Urine Glucose 3+ mg/dL (Normal); Urine Ketone Negative (Negative); Urine Nitrite Negative (Negative); Urine RBC 3 /hpf (0 - 3); Urine Sperm PRESENT /hpf (None Seen); Urine Urobilinogen Normal (Negative); Urine pH 7.5 (5.0-8.0)
[2017-02-22] MEDS: HYDROcodone-ACET 5/325MG TAB PO PRN ×2 (06:00→13:15)
[2017-02-22 06:39] LABS: Basophils # (auto) 0.1 uL; Hemoglobin 11.5 g/dL (13.5-17.5); Lymphocytes # (auto) 1.4 uL; Monocytes # (auto) 1.2 uL
[2017-02-22 06:41] LABS: Basophils % (auto) 1.3 % (0.0-2.0); Eosinophils # (auto) 0.5 uL; Eosinophils % (auto) 4.5 % (0.0-7.0); Hematocrit 34.7 % (41.0-53.0); Lymphocytes % (auto) 12.4 % (10.0-50.0); Mean Corpuscular Hemoglobin 32.5 pg (28.0-32.0); Mean Corpuscular Hgb Conc. 33.2 g/dL (32.0-36.0); Mean Corpuscular Volume 97.8 fL (80.0-100.0); Mean Platelet Volume 7.1 fL (6.9-10.8); Neutrophils # (auto) 8.4 uL; Neutrophils % (auto) 71.8 % (37.0-80.0); Platelet Count (auto) 491 10^3/uL (140-450); Red Cell Distribution Width 14.2 % (11.8-14.3); White Blood Cell 11.7 10^3/uL (4.4-10.8)
[2017-02-22 07:01] LABS: BUN/Creatinine Ratio 6.1; Calcium 7.9 mg/dL (8.5-10.1); Potassium 4.3 mmol/L (3.5-5.1)
[2017-02-22] MEDS ORDERED: HEPARIN DRIP/D5W 100UNITS/ML 250 ML IV SCH ×2 (08:41→13:00)
[2017-02-22] MEDS ORDERED: HEPARIN SODIUM (PORCINE) 5000 UNITS/ML 1ML VIAL IV ONE (08:45)
[2017-02-22] MEDS: DOCUSATE SOD 100 MG CAP PO SCH (10:00)
[2017-02-22] MEDS: RANEXA 500 MG PO SCH ×2 (10:00→21:09)
[2017-02-22] MEDS: CLOPIDOGREL BISULFATE 75 MG TAB PO SCH (10:18)
[2017-02-22] MEDS: LISINOPRIL 10 MG TAB PO SCH (10:19)
[2017-02-22] MEDS: BUMETANIDE 1 MG TAB PO SCH (10:19)
[2017-02-22] MEDS: CARVEDILOL 3.125 MG TAB PO SCH ×2 (10:20→21:10)
[2017-02-22 12:12] LABS: Neutrophils # (auto) 6.4 uL; Nucleated Red Blood Cells % 0.1 %
[2017-02-22 12:13] LABS: Basophils # (auto) 0.1 uL; Basophils % (auto) 0.7 % (0.0-2.0); Eosinophils # (auto) 0.6 uL; Hematocrit 33.1 % (41.0-53.0); Lymphocytes # (auto) 1.8 uL; Lymphocytes % (auto) 18.2 % (10.0-50.0); Mean Corpuscular Hemoglobin 32.3 pg (28.0-32.0); Mean Corpuscular Hgb Conc. 33.3 g/dL (32.0-36.0); Mean Corpuscular Volume 96.9 fL (80.0-100.0); Mean Platelet Volume 7.1 fL (6.9-10.8); Monocytes # (auto) 0.9 uL; Monocytes % (auto) 9.2 % (0.0-12.0); Neutrophils % (auto) 65.9 % (37.0-80.0); Platelet Count (auto) 498 10^3/uL (140-450); Red Cell Distribution Width 13.9 % (11.8-14.3); White Blood Cell 9.6 10^3/uL (4.4-10.8)
[2017-02-22 12:21] LABS: INR 1.01 (0.9-1.15); Partial Thromboplastin Time 68.5 sec (22.64-33.71)
[2017-02-22 12:46] LABS: Phosphorus 5.7 mg/dL (2.5-4.90); Uric Acid 4.3 mg/dL (3.5-7.2)
[2017-02-22] MEDS ORDERED: WARFARIN SODIUM 2 MG TAB PO ONE (17:00)
[2017-02-22] MEDS ORDERED: WARFARIN SODIUM 2.5 MG TAB PO ONE (17:00)
[2017-02-22] MEDS ORDERED: WARFARIN SODIUM 5 MG TAB PO ONE (17:00)
[2017-02-22] MEDS: TAMSULOSIN HYDROCHLORIDE 0.4 MG CAP PO SCH (17:17)
[2017-02-22 20:13] LABS: INR 0.93 (0.9-1.15); Partial Thromboplastin Time 34.1 sec (22.64-33.71); Prothrombin Time 10.1 sec (9.37-12.3)
[2017-02-22] MEDS: ATORVASTATIN 20 MG TAB PO SCH (21:10)
[2017-02-23 01:06] LABS: Albumin 2.1 g/dL (3.4-5.0); BUN/Creatinine Ratio 6.9; Calcium 7.5 mg/dL (8.5-10.1); Potassium 4.3 mmol/L (3.5-5.1)
[2017-02-23 01:08] LABS: Bilirubin, Total 0.2 mg/dL (0.2-1.0); Total Protein 5.8 g/dL (6.4-8.2)
[2017-02-23 05:12] VITALS: BP 146/72
[2017-02-23] MEDS: HEPARIN DRIP/D5W 100UNITS/ML 250 ML IV SCH ×2 (06:44→18:52)
[2017-02-23] MEDS: MORPHINE SULF INJ 2 MG/ML SYRINGE 1ML IV PRN ×3 (06:45→23:29)
[2017-02-23 09:00] VITALS: BP 151/67
[2017-02-23 09:59] LABS: INR 0.95 (0.9-1.15); Partial Thromboplastin Time 37.2 sec (22.64-33.71); Prothrombin Time 10.3 sec (9.37-12.3)
[2017-02-23] MEDS: RANEXA 500 MG PO SCH ×2 (10:00→22:00)
[2017-02-23] MEDS: CLOPIDOGREL BISULFATE 75 MG TAB PO SCH (11:24)
[2017-02-23] MEDS: LISINOPRIL 10 MG TAB PO SCH (11:25)
[2017-02-23] MEDS: BUMETANIDE 1 MG TAB PO SCH (11:25)
[2017-02-23] MEDS: DOCUSATE SOD 100 MG CAP PO SCH (11:25)
[2017-02-23] MEDS: CARVEDILOL 3.125 MG TAB PO SCH ×2 (11:26→22:05)
[2017-02-23 13:00] VITALS: BP 153/72
[2017-02-23 17:00] VITALS: BP 152/75
[2017-02-23] MEDS ORDERED: WARFARIN SODIUM 2.5 MG TAB PO ONE (17:00)
[2017-02-23] MEDS: TAMSULOSIN HYDROCHLORIDE 0.4 MG CAP PO SCH (17:23)
[2017-02-23 17:36] LABS: INR 0.94 (0.9-1.15); Prothrombin Time 10.2 sec (9.37-12.3)
[2017-02-23] MEDS: ATORVASTATIN 20 MG TAB PO SCH (22:05)
[2017-02-23 22:09] VITALS: BP 178/76
[2017-02-23] MEDS: HYDROcodone-ACET 5/325MG TAB PO PRN (23:34)
[2017-02-24] MEDS ORDERED: SODIUM CHL 0.9% 1000 ML BAG XX ONE (05:00)
[2017-02-24 05:07] VITALS: BP 164/68
[2017-02-24 05:55] LABS: Basophils # (auto) 0.1 uL; Lymphocytes # (auto) 2.3 uL
[2017-02-24 05:58] LABS: Basophils % (auto) 1.3 % (0.0-2.0); Eosinophils # (auto) 0.7 uL; Eosinophils % (auto) 6.5 % (0.0-7.0); Hemoglobin 10.5 g/dL (13.5-17.5); Lymphocytes % (auto) 22.1 % (10.0-50.0); Mean Corpuscular Hemoglobin 32.6 pg (28.0-32.0); Mean Corpuscular Hgb Conc. 33.8 g/dL (32.0-36.0); Mean Corpuscular Volume 96.4 fL (80.0-100.0); Mean Platelet Volume 7.3 fL (6.9-10.8); Monocytes # (auto) 0.8 uL; Monocytes % (auto) 8.1 % (0.0-12.0); Neutrophils # (auto) 6.3 uL; Nucleated Red Blood Cells % 0.1 %; Platelet Count (auto) 507 10^3/uL (140-450); Red Cell Distribution Width 13.9 % (11.8-14.3); White Blood Cell 10.2 10^3/uL (4.4-10.8)
[2017-02-24] MEDS ORDERED: HEPARIN DRIP/D5W 100UNITS/ML 250 ML IV SCH (06:00)
[2017-02-24 06:06] LABS: INR 0.96 (0.9-1.15); Prothrombin Time 10.5 sec (9.37-12.3)
[2017-02-24 06:15] LABS: BUN/Creatinine Ratio 8.5; Calcium 8.3 mg/dL (8.5-10.1); Potassium 4.6 mmol/L (3.5-5.1)
[2017-02-24 08:00] VITALS: BP 129/65
[2017-02-24 09:00] VITALS: BP 129/65
[2017-02-24] MEDS: MORPHINE SULF INJ 2 MG/ML SYRINGE 1ML IV PRN ×2 (09:20→20:15)
[2017-02-24] MEDS: RANEXA 500 MG PO SCH ×2 (10:00→22:00)
[2017-02-24] MEDS ORDERED: EPOETIN ALFA 4,000 UNIT/ML VL IV ONE (10:30)
[2017-02-24 11:45] LABS: INR 1.01 (0.9-1.15)
[2017-02-24 11:55] LABS: Partial Thromboplastin Time 83.6 sec (22.64-33.71)
[2017-02-24] MEDS: HEPARIN DRIP/D5W 100UNITS/ML 250 ML IV SCH ×2 (12:15→20:15)
[2017-02-24 13:00] VITALS: BP 141/68
[2017-02-24] MEDS: LISINOPRIL 10 MG TAB PO SCH (14:36)
[2017-02-24] MEDS: CLOPIDOGREL BISULFATE 75 MG TAB PO SCH (14:36)
[2017-02-24] MEDS: BUMETANIDE 1 MG TAB PO SCH (14:36)
[2017-02-24] MEDS: CARVEDILOL 3.125 MG TAB PO SCH ×2 (14:37→22:00)
[2017-02-24] MEDS: DOCUSATE SOD 100 MG CAP PO SCH (14:41)
[2017-02-24 17:00] VITALS: BP 157/70
[2017-02-24] MEDS ORDERED: WARFARIN SODIUM 2.5 MG TAB PO ONE (17:00)
[2017-02-24] MEDS: TAMSULOSIN HYDROCHLORIDE 0.4 MG CAP PO SCH (17:24)
[2017-02-24] MEDS: HYDROcodone-ACET 5/325MG TAB PO PRN (17:36)
[2017-02-24 18:25] LABS: INR 1.04 (0.9-1.15); Prothrombin Time 11.3 sec (9.37-12.3)
[2017-02-24 22:00] VITALS: BP 154/68
[2017-02-24] MEDS: ATORVASTATIN 20 MG TAB PO SCH (22:00)
[2017-02-25] VITALS (7 sets, daily range): BP systolic 123–166; BP diastolic 65–83
[2017-02-25] MEDS: HYDROcodone-ACET 5/325MG TAB PO PRN ×3 (04:26→17:39)
[2017-02-25 06:01] LABS: Basophils # (auto) 0.2 uL; Basophils % (auto) 1.3 % (0.0-2.0); Eosinophils # (auto) 0.7 uL; Eosinophils % (auto) 5.7 % (0.0-7.0); Hematocrit 31.5 % (41.0-53.0); Hemoglobin 10.4 g/dL (13.5-17.5); Lymphocytes # (auto) 2.5 uL; Lymphocytes % (auto) 21.4 % (10.0-50.0); Mean Corpuscular Hemoglobin 31.9 pg (28.0-32.0); Mean Corpuscular Volume 96.5 fL (80.0-100.0); Mean Platelet Volume 7.7 fL (6.9-10.8); Monocytes % (auto) 8.6 % (0.0-12.0); Neutrophils # (auto) 7.3 uL; Nucleated Red Blood Cells % 0.1 %; Platelet Count (auto) 469 10^3/uL (140-450); Red Cell Distribution Width 14.4 % (11.8-14.3); White Blood Cell 11.5 10^3/uL (4.4-10.8)
[2017-02-25 06:16] LABS: INR 1.18 (0.9-1.15); Prothrombin Time 12.9 sec (9.37-12.3)
[2017-02-25 06:17] LABS: Albumin 2.1 g/dL (3.4-5.0); BUN/Creatinine Ratio 8.1; Calcium 7.7 mg/dL (8.5-10.1); Potassium 3.9 mmol/L (3.5-5.1)
[2017-02-25 06:19] LABS: Partial Thromboplastin Time 71.1 sec (22.64-33.71)
[2017-02-25 06:20] LABS: Bilirubin, Total 0.2 mg/dL (0.2-1.0); Total Protein 6.2 g/dL (6.4-8.2)
[2017-02-25] MEDS: RANEXA 500 MG PO SCH ×2 (10:00→22:00)
[2017-02-25] MEDS: DOCUSATE SOD 100 MG CAP PO SCH (10:00)
[2017-02-25] MEDS: BUMETANIDE 1 MG TAB PO SCH (10:19)
[2017-02-25] MEDS: CLOPIDOGREL BISULFATE 75 MG TAB PO SCH (10:19)
[2017-02-25] MEDS: CARVEDILOL 3.125 MG TAB PO SCH ×2 (10:19→22:08)
[2017-02-25] MEDS: LISINOPRIL 10 MG TAB PO SCH (10:20)
[2017-02-25] MEDS: HEPARIN DRIP/D5W 100UNITS/ML 250 ML IV SCH (10:22)
[2017-02-25] MEDS: MORPHINE SULF INJ 2 MG/ML SYRINGE 1ML IV PRN (10:23)
[2017-02-25] MEDS ORDERED: SODIUM CHL 0.9% 1000 ML BAG XX ONE (11:45)
[2017-02-25] MEDS ORDERED: EPOETIN ALFA 3,000 UNIT/1 ML VIAL IV ONE ×2 (11:45→12:00)
[2017-02-25] MEDS ORDERED: EPOETIN ALFA 2,000 UNIT/1 ML VIAL IV ONE (12:00)
[2017-02-25] MEDS ORDERED: WARFARIN SODIUM 2.5 MG TAB PO ONE (17:00)
[2017-02-25] MEDS: TAMSULOSIN HYDROCHLORIDE 0.4 MG CAP PO SCH (17:39)
[2017-02-25] MEDS: ATORVASTATIN 20 MG TAB PO SCH (22:08)
[2017-02-26] VITALS (7 sets, daily range): BP systolic 126–153; BP diastolic 52–71
[2017-02-26] MEDS: HYDROcodone-ACET 5/325MG TAB PO PRN ×3 (00:09→15:50)
[2017-02-26] MEDS: HEPARIN DRIP/D5W 100UNITS/ML 250 ML IV SCH ×3 (00:10→20:43)
[2017-02-26 05:08] LABS: Mean Platelet Volume 7.4 fL (6.9-10.8)
[2017-02-26 05:10] LABS: Basophils # (auto) 0.2 uL; Basophils % (auto) 1.4 % (0.0-2.0); Eosinophils # (auto) 0.9 uL; Eosinophils % (auto) 7.3 % (0.0-7.0); Hematocrit 31.2 % (41.0-53.0); Hemoglobin 10.3 g/dL (13.5-17.5); Lymphocytes # (auto) 1.9 uL; Lymphocytes % (auto) 14.8 % (10.0-50.0); Mean Corpuscular Hemoglobin 31.6 pg (28.0-32.0); Mean Corpuscular Hgb Conc. 32.9 g/dL (32.0-36.0); Mean Corpuscular Volume 95.8 fL (80.0-100.0); Monocytes % (auto) 7.7 % (0.0-12.0); Neutrophils # (auto) 8.9 uL; Neutrophils % (auto) 68.8 % (37.0-80.0); Platelet Count (auto) 493 10^3/uL (140-450); Red Cell Distribution Width 14.2 % (11.8-14.3); White Blood Cell 12.9 10^3/uL (4.4-10.8)
[2017-02-26 05:34] LABS: BUN/Creatinine Ratio 8.7; Calcium 8.1 mg/dL (8.5-10.1); Potassium 4.3 mmol/L (3.5-5.1)
[2017-02-26 05:42] LABS: INR 2.27 (0.9-1.15); Prothrombin Time 24.9 sec (9.37-12.3)
[2017-02-26] MEDS: RANEXA 500 MG PO SCH ×2 (09:47→22:00)
[2017-02-26] MEDS: DOCUSATE SOD 100 MG CAP PO SCH (09:48)
[2017-02-26] MEDS: BUMETANIDE 1 MG TAB PO SCH (12:14)
[2017-02-26] MEDS: CARVEDILOL 3.125 MG TAB PO SCH ×2 (12:15→21:55)
[2017-02-26] MEDS: CLOPIDOGREL BISULFATE 75 MG TAB PO SCH (12:15)
[2017-02-26] MEDS: LISINOPRIL 10 MG TAB PO SCH (12:15)
[2017-02-26 14:23] LABS: INR 2.49 (0.9-1.15); Partial Thromboplastin Time 38.2 sec (22.64-33.71); Prothrombin Time 27.4 sec (9.37-12.3)
[2017-02-26] MEDS ORDERED: WARFARIN SODIUM 2.5 MG TAB PO ONE (17:00)
[2017-02-26] MEDS: PRO-STAT 64 30ML PO SCH (17:47)
[2017-02-26] MEDS: TAMSULOSIN HYDROCHLORIDE 0.4 MG CAP PO SCH (17:47)
[2017-02-26] MEDS: ATORVASTATIN 20 MG TAB PO SCH (21:55)
[2017-02-27] MEDS: HYDROcodone-ACET 5/325MG TAB PO PRN ×2 (04:44→09:55)
[2017-02-27 04:55] VITALS: BP 169/82
[2017-02-27 06:50] LABS: Basophils # (auto) 0.2 uL; Eosinophils # (auto) 0.6 uL; Hemoglobin 10.4 g/dL (13.5-17.5); Monocytes # (auto) 1.1 uL
[2017-02-27 06:52] LABS: Basophils % (auto) 1.3 % (0.0-2.0); Eosinophils % (auto) 4.9 % (0.0-7.0); Lymphocytes # (auto) 1.5 uL; Lymphocytes % (auto) 11.9 % (10.0-50.0); Mean Corpuscular Hemoglobin 32.5 pg (28.0-32.0); Mean Corpuscular Hgb Conc. 33.5 g/dL (32.0-36.0); Mean Corpuscular Volume 96.8 fL (80.0-100.0); Mean Platelet Volume 7.7 fL (6.9-10.8); Monocytes % (auto) 8.6 % (0.0-12.0); Neutrophils % (auto) 73.3 % (37.0-80.0); Platelet Count (auto) 475 10^3/uL (140-450); Red Cell Distribution Width 14.5 % (11.8-14.3); White Blood Cell 12.3 10^3/uL (4.4-10.8)
[2017-02-27 07:02] LABS: BUN/Creatinine Ratio 8.2
[2017-02-27 07:13] LABS: INR 2.94 (0.9-1.15); Partial Thromboplastin Time 39.2 sec (22.64-33.71); Prothrombin Time 32.4 sec (9.37-12.3)
[2017-02-27 07:59] VITALS: BP 153/71
[2017-02-27] MEDS: DOCUSATE SOD 100 MG CAP PO SCH (08:11)
[2017-02-27] MEDS: RANEXA 500 MG PO SCH (08:11)
[2017-02-27 09:00] VITALS: BP 154/76
[2017-02-27] MEDS: PRO-STAT 64 30ML PO SCH (09:34)
[2017-02-27] MEDS: CLOPIDOGREL BISULFATE 75 MG TAB PO SCH (09:54)
[2017-02-27] MEDS: BUMETANIDE 1 MG TAB PO SCH (09:55)
[2017-02-27] MEDS: CARVEDILOL 3.125 MG TAB PO SCH (09:55)
[2017-02-27] MEDS: LISINOPRIL 10 MG TAB PO SCH (09:55)
[2017-02-27] MEDS: HEPARIN DRIP/D5W 100UNITS/ML 250 ML IV SCH (11:26)
[2017-02-27] MEDS ORDERED: WARF2.5T PO (12:03)
[2017-02-27 13:00] VITALS: BP 141/58
[2017-02-27 13:29] VITALS: BP 154/76
[2017-02-27] MEDS ORDERED: RANOLAZINE ER 500 MG TAB PO SCH (22:00)
[2017-02-28] MEDS ORDERED: EPOETIN ALFA 10,000 UNIT/1 ML VIAL IV ONE (10:45)
[2017-02-28] MEDS ORDERED: SODIUM CHL 0.9% 1000 ML BAG XX ONE (10:45)
[2017-03-05] MEDS ORDERED: CEFU500T43 PO (10:04)
== END 2017-02-27 16:28 | disposition home or self-care (01) | DRG 190 ==
LOC: EDBD 15:55 → ER 16:03 → TELE 16:04 → TELE-WESTW 02-22 03:20
PROVIDERS: ADMIT Nurse Practitioner Family; ATTEND Internal Medicine
PROC: 5A1D70Z Performance of Urinary Filtration, Intermittent, Less than 6 Hours Per Day (ICD-10-PCS; principal; 2017-02-24)
PROC: 5A1D70Z Performance of Urinary Filtration, Intermittent, Less than 6 Hours Per Day (ICD-10-PCS; 2017-02-26)
DX: I21.4 Non-ST elevation (NSTEMI) myocardial infarction (principal); I50.43 Acute on chronic combined systolic (congestive) and diastolic (congestive) heart failure; N18.6 End stage renal disease; E87.8 Other disorders of electrolyte and fluid balance, not elsewhere classified; I13.2 Hypertensive heart and chronic kidney disease with heart failure and with stage 5 chronic kidney disease, or end stage renal disease; D63.8 Anemia in other chronic diseases classified elsewhere; E78.5 Hyperlipidemia, unspecified; N40.0 Benign prostatic hyperplasia without lower urinary tract symptoms; G89.29 Other chronic pain; I25.10 Atherosclerotic heart disease of native coronary artery without angina pectoris; R73.9 Hyperglycemia, unspecified; J44.9 Chronic obstructive pulmonary disease, unspecified; K21.9 Gastro-esophageal reflux disease without esophagitis; F17.200 Nicotine dependence, unspecified, uncomplicated; Z71.6 Tobacco abuse counseling; Z98.61 Coronary angioplasty status; Z99.2 Dependence on renal dialysis; Z79.01 Long term (current) use of anticoagulants; Z79.899 Other long term (current) drug therapy; Z86.718 Personal history of other venous thrombosis and embolism; Z82.49 Family history of ischemic heart disease and other diseases of the circulatory system; Z82.5 Family history of asthma and other chronic lower respiratory diseases; Z83.3 Family history of diabetes mellitus
CPT/HCPCS: 36415; 71010; 78582; 80048; 80053; 81001; 82306; 82550; 83036; 83735; 83880; 83970; 84100; 84443; 84484; 84550; 85025; 85379; 85610; 85730; 86141; 87081; 90935; 93005; 96374; 96375; J1642; J2405; Q4081

== ENCOUNTER 2018-04-19 06:25 | Day surgery (SDC) | payer MEDICARE, MEDICAID ==
[~2018-04-19] VITALS: Ht 167.6 cm; Wt 65.9 kg
[~2018-04-19 06:25] MED LIST changes: -ALBUAER3 IN; +AMI200T PO; +APIX2.5T PO; +ASPI1TAB19 PO; -ASPI81CH43 PO; +ATOR10TA52 PO; -ATOR20TA50 PO; +BUME1TAB PO; -BUME1TAB26 PO; -CALC667C5 PO; +CLIN1CAP4 PO; -DOCU100C8 PO; -FAMO-12 PO; -FENT25DI2 TD; +GLIP-115 PO; +ISOS10TA2 PO; +LEVO500T21 PO; -MORP15TA PO; +PANT40TA2 PO; +RANO500T2 PO; +SACC250C PO; +SUCR5CHW PO; -TAM04C PO; -WARF2TAB55 PO
[2018-04-19] MEDS ORDERED: LIDOCAINE 2%HCL (LOCAL ANESTH.) INJ 20ML MDV ONE (07:20)
[2018-04-19] MEDS ORDERED: IODIXANOL 320MG/ML 100ML BTL IV ONE ×2 (07:20→10:07)
[2018-04-19] MEDS ORDERED: ANGIOMAX 250 MG VIAL IV ONE (09:55)
[2018-04-19] MEDS ORDERED: fentaNYL CITRATE 100 MCG/2 ML VL ONE (09:55)
[2018-04-19] MEDS ORDERED: SODIUM CHL 0.9% 50 ML ONE (09:56)
[2018-04-19] MEDS ORDERED: MIDAZOLAM HCL 1MG/1ML-2 ML VIAL ONE (09:56)
[2018-04-19] MEDS ORDERED: NITROGLYCERIN 5MG/ML 10ML VIAL IV ONE (10:28)
[2018-04-19] MEDS ORDERED: VERAPAMIL 2.5MG/ML INJ 2ML VIAL IV ONE (10:28)
[2018-04-19] MEDS ORDERED: ASPirin 81 mg TAB ONE (11:46)
[2018-04-19] MEDS ORDERED: CLOPIDOGREL BISULFATE 75 MG TAB ONE (11:46)
[2018-04-19] MEDS ORDERED: ACETAMINOPHEN 500 MG TAB PO PRN (12:00)
[2018-04-19] MEDS ORDERED: HYDROcodone-ACET 5/325MG TAB PO PRN (12:00)
[2018-04-19] MEDS ORDERED: ONDANSETRON HCL 4 MG/2 ML VIAL IV PRN (12:00)
== END 2018-04-19 16:00 | disposition home or self-care (01) ==
LOC: CATH 06:25
PROVIDERS: ATTEND Internal Medicine
DX: I70.203 Unspecified atherosclerosis of native arteries of extremities, bilateral legs (principal); I82.409 Acute embolism and thrombosis of unspecified deep veins of unspecified lower extremity; J44.9 Chronic obstructive pulmonary disease, unspecified; F10.99 Alcohol use, unspecified with unspecified alcohol-induced disorder; F17.210 Nicotine dependence, cigarettes, uncomplicated; E78.5 Hyperlipidemia, unspecified; I25.2 Old myocardial infarction; Z80.8 Family history of malignant neoplasm of other organs or systems; Z82.49 Family history of ischemic heart disease and other diseases of the circulatory system; Z83.3 Family history of diabetes mellitus; Z82.5 Family history of asthma and other chronic lower respiratory diseases; I11.0 Hypertensive heart disease with heart failure
CPT/HCPCS: 37225; 37228; 75716; C1725; C1760; C1769; C1887; C1894; J0583; J1644; J2250; J3010; J3490; Q9967; 99152; 99153; A6257

== ENCOUNTER 2018-04-26 10:04 | Inpatient (IN) | payer MEDICARE, MEDICAID ==
[2018-04-26] VITALS (9 sets, daily range): BP systolic 76–115; BP diastolic 41–62
[~2018-04-26] VITALS: Ht 177.8 cm; Wt 76.0 kg
[2018-04-26] MEDS ORDERED: DOPamine 1600MCG/ML D5W 250 ML IV ONE (10:06)
[2018-04-26] MEDS ORDERED: EPINEPHrine HCL INJECTION 4 MG in SODIUM CHL 0.9% 250 ML IV ONE (10:30)
[2018-04-26] MEDS ORDERED: SODIUM BICARBONATE 8.4% INJ 50ML SYRINGE ONE (10:35)
[2018-04-26 10:46] LABS: Eosinophils # (auto) 0.1 uL; Neutrophils % (auto) 82.7 % (37.0-80.0)
[2018-04-26 10:49] LABS: Basophils # (auto) 0.1 uL; Basophils % (auto) 0.6 % (0.0-2.0); Eosinophils % (auto) 0.5 % (0.0-7.0); Hematocrit 31.9 % (41.0-53.0); Lymphocytes # (auto) 2.4 uL; Mean Corpuscular Hemoglobin 31.9 pg (28.0-32.0); Mean Corpuscular Hgb Conc. 28.3 g/dL (32.0-36.0); Mean Corpuscular Volume 112.5 fL (80.0-100.0); Monocytes # (auto) 0.6 uL; Monocytes % (auto) 3.2 % (0.0-12.0); Neutrophils # (auto) 15.2 uL; Nucleated Red Blood Cells % 0.4 %; Platelet Count (auto) 327 10^3/uL (140-450); Red Blood Cells 2.84 10^6/uL (4.5-5.90); White Blood Cell 18.4 10^3/uL (4.4-10.8)
[2018-04-26] MEDS ORDERED: SODIUM CHLORIDE 0.9% 1,000 ML IV ONE (10:52)
[2018-04-26 10:56] LABS: Red Cell Distribution Width 20.8 % (11.8-14.3)
[2018-04-26 11:00] LABS: Calcium 8.5 mg/dL (8.5-10.1)
[2018-04-26 11:09] LABS: Albumin 2.2 g/dL (3.4-5.0); BUN/Creatinine Ratio 6.4; Bilirubin, Total 0.4 mg/dL (0.2-1.0); Total Protein 6.8 g/dL (6.4-8.2)
[2018-04-26 11:10] LABS: Urine WBC None Seen /hpf (0 - 3)
[2018-04-26 11:17] LABS: Potassium 6.5 mmol/L (3.5-5.1)
[2018-04-26 11:28] LABS: Urine Bacteria NONE SEEN /hpf (None Seen); Urine Blood 1+ /uL (Negative); Urine Mucus FEW (None Seen); Urine Specific Gravity 1.015 (1.001-1.035); Urine Sperm PRESENT /hpf (None Seen)
[2018-04-26] MEDS ORDERED: SODIUM CHL 0.9% 1000 ML BAG XX ONE (11:30)
[2018-04-26] MEDS ORDERED: EPOETIN ALFA 10,000 UNIT/1 ML VIAL IV ONE (11:30)
[2018-04-26] MEDS ORDERED: PIPERACILLIN-TAZOB 3.375GM 100 ML IV ONE (13:00)
[2018-04-26] MEDS ORDERED: VANCOMYCIN 1GM/250ML 250 ML IV ONE (13:00)
[2018-04-26] MEDS ORDERED: MORPHINE SULFATE 4 MG/ML SYR/VIAL IV PRN (14:00)
[2018-04-26] MEDS ORDERED: ASPirin 81 mg TAB PO ONE (14:00)
[2018-04-26] MEDS ORDERED: VANCOMYCIN PER PHARMACY 0 MG IV SCH (14:00)
[2018-04-26] MEDS ORDERED: NITROGLYCERIN 0.4 MG SL TAB SL PRN (14:00)
[2018-04-26] MEDS: DOPamine 1600MCG/ML D5W 250 ML IV SCH ×2 (14:39→22:27)
[2018-04-26] MEDS: EPINEPHrine HCL 250 ML IV SCH (14:39)
[2018-04-26] MEDS: MIDAZOLAM DRIP 50 mg/50mL 50 ML IV SCH (14:41)
[2018-04-26] MEDS ORDERED: HEPARIN 1,000 UNITS/ml 1ML VIAL XX ONE (15:30)
[2018-04-26] MEDS: ACCU-CHEK COMFORT CURVE STRIP VI SCH (18:03)
[2018-04-26] MEDS: InsuLIN REG 1unit/0.01ml Soln (100units/ml) SC SCH (18:04)
[2018-04-26] MEDS ORDERED: SODIUM BICARBONATE 8.4% INJ 50ML SYRINGE IV ONE (18:29)
[2018-04-26] MEDS ORDERED: CALCIUM CHLOR(10%) 100MG/ML 10ML SYRINGE IV ONE (18:29)
[2018-04-26] MEDS ORDERED: MAGNESIUM SULF SDV 50% 4MEQ/ML-2 ML VIAL IV ONE (18:29)
[2018-04-26] MEDS ORDERED: EPINEPHrine HCL 1 MG/10 ML SYRG IV ONE (18:29)
[2018-04-26] MEDS ORDERED: AMIODARONE HCL (50 MG/ ML) 3 ML VIAL IV ONE (18:29)
[2018-04-26] MEDS ORDERED: DEXTROSE (50%) 50ML SYRG IV ONE ×2 (18:29→21:30)
[2018-04-26] MEDS ORDERED: DOPamine 1600mCg/ml 400MG/250ml NSorD5 KIT/BAG IV ONE (18:29)
[2018-04-26] MEDS ORDERED: InsuLIN REG 1unit/0.01ml Soln (100units/ml) IV ONE (21:30)
[2018-04-26] MEDS ORDERED: SODIUM BICARBONATE 8.4 % INJ 50ML VIAL IV ONE (21:30)
[2018-04-26] MEDS ORDERED: CALCIUM GLUC 4.65meq/50ml D5AE 50 ML IV ONE (21:30)
[2018-04-26] MEDS ORDERED: ATORVASTATIN 20 MG TAB PO SCH (22:00)
[2018-04-27] VITALS (108 sets, daily range): BP systolic 59–140; BP diastolic 24–77
[2018-04-27] MEDS: PIPERACILLIN-TAZOB 2.25GM 50 ML IV SCH ×3 (00:45→21:50)
[2018-04-27] MEDS ORDERED: NOREPINEPHRINE 8 MG/250ML KIT 250 ML IV ONE (02:19)
[2018-04-27] MEDS: NOREPINEPHRINE 8 MG/250ML KIT 250 ML IV SCH ×3 (02:20→21:51)
[2018-04-27 04:03] LABS: Basophils # (auto) 0.1 uL; Basophils % (auto) 0.4 % (0.0-2.0); Eosinophils # (auto) 0.1 uL; Eosinophils % (auto) 0.6 % (0.0-7.0); Hemoglobin 9.1 g/dL (13.5-17.5); Lymphocytes # (auto) 0.8 uL; Lymphocytes % (auto) 5.7 % (10.0-50.0); Mean Corpuscular Hemoglobin 31.2 pg (28.0-32.0); Mean Corpuscular Hgb Conc. 31.4 g/dL (32.0-36.0); Mean Corpuscular Volume 99.3 fL (80.0-100.0); Monocytes # (auto) 0.4 uL; Monocytes % (auto) 2.9 % (0.0-12.0); Neutrophils # (auto) 12.4 uL; Neutrophils % (auto) 90.4 % (37.0-80.0); Nucleated Red Blood Cells % 0.1 %; Platelet Count (auto) 315 10^3/uL (140-450); Red Blood Cells 2.92 10^6/uL (4.5-5.90); Red Cell Distribution Width 19.5 % (11.8-14.3); White Blood Cell 13.7 10^3/uL (4.4-10.8)
[2018-04-27] MEDS: PHENYLEPHRINE INJ 20 MG in SODIUM CHL 0.9% 250 ML IV SCH ×3 (04:30→19:00)
[2018-04-27 04:44] LABS: Albumin 1.8 g/dL (3.4-5.0); Calcium 6.4 mg/dL (8.5-10.1); Potassium 3.5 mmol/L (3.5-5.1)
[2018-04-27 04:50] LABS: BUN/Creatinine Ratio 8.9
[2018-04-27 04:51] LABS: Bilirubin, Total 0.7 mg/dL (0.2-1.0); Total Protein 5.6 g/dL (6.4-8.2)
[2018-04-27] MEDS: ACCU-CHEK COMFORT CURVE STRIP VI SCH ×4 (06:12→19:00)
[2018-04-27] MEDS: InsuLIN REG 1unit/0.01ml Soln (100units/ml) SC SCH ×4 (06:15→19:00)
[2018-04-27] MEDS: DOPamine 1600MCG/ML D5W 250 ML IV SCH ×3 (07:01→20:09)
[2018-04-27] MEDS: CLOPIDOGREL BISULFATE 75 MG TAB PO SCH (10:00)
[2018-04-27] MEDS: EPINEPHrine HCL 250 ML IV SCH ×2 (10:00→23:34)
[2018-04-27] MEDS ORDERED: VANCOMYCIN 1GM/250ML 250 ML IV ONE (10:15)
[2018-04-27] MEDS: DEXTROSE (50%) 50ML SYRG IV PRN ×2 (11:55→15:25)
[2018-04-27] MEDS: MIDAZOLAM DRIP 50 mg/50mL 50 ML IV SCH (13:10)
[2018-04-27] MEDS ORDERED: PANTOPRAZOLE 40 MG/10 ML VIAL IV ONE (14:30)
[2018-04-28] VITALS (103 sets, daily range): BP systolic 80–148; BP diastolic 34–96
[2018-04-28] MEDS: DOPamine 1600MCG/ML D5W 250 ML IV SCH ×4 (00:03→12:46)
[2018-04-28] MEDS: ACCU-CHEK COMFORT CURVE STRIP VI SCH ×4 (00:14→18:00)
[2018-04-28] MEDS: DEXTROSE (50%) 50ML SYRG IV PRN (00:16)
[2018-04-28] MEDS ORDERED: NOREPINEPHRINE BITARTRATE 2 ML IV ONE (02:15)
[2018-04-28] MEDS: PHENYLEPHRINE INJ 20 MG in SODIUM CHL 0.9% 250 ML IV SCH ×3 (03:20→20:00)
[2018-04-28] MEDS: NOREPINEPHRINE 8 MG/250ML KIT 250 ML IV SCH ×3 (04:11→14:55)
[2018-04-28] MEDS: InsuLIN REG 1unit/0.01ml Soln (100units/ml) SC SCH ×4 (05:30→18:00)
[2018-04-28 05:48] LABS: Hemoglobin 8.1 g/dL (13.5-17.5)
[2018-04-28 05:51] LABS: Hematocrit 24.6 % (41.0-53.0); Mean Corpuscular Hemoglobin 32.5 pg (28.0-32.0); Mean Corpuscular Hgb Conc. 32.9 g/dL (32.0-36.0); Mean Corpuscular Volume 98.9 fL (80.0-100.0); Platelet Count (auto) 207 10^3/uL (140-450); Red Blood Cells 2.48 10^6/uL (4.5-5.90); Red Cell Distribution Width 19.1 % (11.8-14.3); White Blood Cell 15.9 10^3/uL (4.4-10.8)
[2018-04-28 06:00] LABS: % Iron Saturation 82.5 % (20-55)
[2018-04-28 06:08] LABS: Albumin 1.4 g/dL (3.4-5.0); Potassium 4.6 mmol/L (3.5-5.1)
[2018-04-28 06:14] LABS: BUN/Creatinine Ratio 10.4; Bilirubin, Total 1.2 mg/dL (0.2-1.0)
[2018-04-28 06:52] LABS: Basophils % (manual) 0 (0.0-2.0); Blast Cells 0; Myelocytes % 0; Promyelocytes % 0; Reactive Lymphocytes 0
[2018-04-28] MEDS ORDERED: SODIUM CHL 0.9% 1000 ML BAG XX ONE (07:15)
[2018-04-28 08:13] LABS: Band Neutrophils % (manual) 23; Eosinophils % (manual) 1 (0-7); Lymphocytes % (manual) 10 (10.0-50.0); Metamyelocytes % 2; Monocytes % (manual) 5 (0-12)
[2018-04-28] MEDS: CLOPIDOGREL BISULFATE 75 MG TAB PO SCH (10:00)
[2018-04-28] MEDS: EPINEPHrine HCL 250 ML IV SCH (12:45)
[2018-04-28] MEDS: PIPERACILLIN-TAZOB 2.25GM 50 ML IV SCH ×2 (13:09→22:22)
[2018-04-28] MEDS: PANTOPRAZOLE 40 MG/10 ML VIAL IV SCH (13:09)
[2018-04-28] MEDS: MIDAZOLAM DRIP 50 mg/50mL 50 ML IV SCH (13:54)
[2018-04-28] MEDS ORDERED: EPINEPHrine HCL INJECTION 8 MG in D5W 5% 250 ML IV SCH (15:31)
[2018-04-28] MEDS: DOPamine 3200MCG/ML 250 ML IV SCH (17:15)
[2018-04-28] MEDS: NOREPINEPHRINE BITARTRATE 32 MG in D5W 5% 218 ML IV SCH (18:40)
[2018-04-28] MEDS ORDERED: EPOETIN ALFA 10,000 UNIT/1 ML VIAL SC ONE (21:00)
[2018-04-29] VITALS (63 sets, daily range): BP systolic 55–162; BP diastolic 38–92
[2018-04-29] MEDS: InsuLIN REG 1unit/0.01ml Soln (100units/ml) SC SCH ×3 (00:15→11:44)
[2018-04-29] MEDS: ACCU-CHEK COMFORT CURVE STRIP VI SCH ×3 (00:15→11:43)
[2018-04-29] MEDS: DOPamine 3200MCG/ML 250 ML IV SCH ×2 (00:58→11:29)
[2018-04-29] MEDS: PHENYLEPHRINE INJ 20 MG in SODIUM CHL 0.9% 250 ML IV SCH ×2 (04:20→12:40)
[2018-04-29 07:00] LABS: Hemoglobin 8.1 g/dL (13.5-17.5)
[2018-04-29 07:02] LABS: Hematocrit 24.9 % (41.0-53.0); Mean Corpuscular Hemoglobin 31.9 pg (28.0-32.0); Mean Corpuscular Hgb Conc. 32.8 g/dL (32.0-36.0); Mean Corpuscular Volume 97.2 fL (80.0-100.0); Platelet Count (auto) 164 10^3/uL (140-450); Red Blood Cells 2.56 10^6/uL (4.5-5.90); White Blood Cell 13.1 10^3/uL (4.4-10.8)
[2018-04-29 07:10] LABS: Basophils % (manual) 0 (0.0-2.0); Blast Cells 0; Metamyelocytes % 0; Myelocytes % 0; Promyelocytes % 0; Reactive Lymphocytes 0
[2018-04-29 07:28] LABS: BUN/Creatinine Ratio 7.2; Calcium 6.4 mg/dL (8.5-10.1); Potassium 3.7 mmol/L (3.5-5.1)
[2018-04-29 07:50] LABS: Band Neutrophils % (manual) 19; Eosinophils % (manual) 1 (0-7); Lymphocytes % (manual) 7 (10.0-50.0); Monocytes % (manual) 4 (0-12)
[2018-04-29] MEDS: NOREPINEPHRINE BITARTRATE 32 MG in D5W 5% 218 ML IV SCH (09:00)
[2018-04-29] MEDS: CLOPIDOGREL BISULFATE 75 MG TAB PO SCH (10:00)
[2018-04-29] MEDS: PIPERACILLIN-TAZOB 2.25GM 50 ML IV SCH (10:11)
[2018-04-29] MEDS: PANTOPRAZOLE 40 MG/10 ML VIAL IV SCH (10:11)
[2018-04-29] MEDS ORDERED: PIPERACILLIN-TAZOB 0.75 GM in D5W 5% 50 ML IV SCH (11:45)
[2018-04-29] MEDS: DEXTROSE (50%) 50ML SYRG IV PRN (11:47)
[2018-04-29] MEDS ORDERED: LORazepam 2MG/ML-1ML VIAL IV PRN (13:15)
[2018-04-29] MEDS ORDERED: MORPHINE SULFATE 4 MG/ML SYR/VIAL IV PRN (13:15)
== END 2018-04-29 20:48 | disposition expired | DRG 189 ==
LOC: ER 10:04 → EDBD 10:04 → OVERFLOW 13:42 → ICU WEST 21:52
PROVIDERS: ADMIT Nurse Practitioner Acute Care; ATTEND Internal Medicine
PROC: 0BH17EZ Insertion of Endotracheal Airway into Trachea, Via Natural or Artificial Opening (ICD-10-PCS; principal; 2018-04-26)
PROC: 02HV33Z Insertion of Infusion Device into Superior Vena Cava, Percutaneous Approach (ICD-10-PCS; 2018-04-26)
PROC: 5A12012 Performance of Cardiac Output, Single, Manual (ICD-10-PCS; 2018-04-26)
PROC: 5A1D70Z Performance of Urinary Filtration, Intermittent, Less than 6 Hours Per Day (ICD-10-PCS; 2018-04-26)
PROC: 5A1D70Z Performance of Urinary Filtration, Intermittent, Less than 6 Hours Per Day (ICD-10-PCS; 2018-04-28)
DX: J96.00 Acute respiratory failure, unspecified whether with hypoxia or hypercapnia (principal); I21.9 Acute myocardial infarction, unspecified; J69.0 Pneumonitis due to inhalation of food and vomit; I50.43 Acute on chronic combined systolic (congestive) and diastolic (congestive) heart failure; N18.6 End stage renal disease; G93.6 Cerebral edema; E87.2 Acidosis; G93.1 Anoxic brain damage, not elsewhere classified; I13.2 Hypertensive heart and chronic kidney disease with heart failure and with stage 5 chronic kidney disease, or end stage renal disease; R57.9 Shock, unspecified; R57.0 Cardiogenic shock; I48.91 Unspecified atrial fibrillation; E87.5 Hyperkalemia; J44.9 Chronic obstructive pulmonary disease, unspecified; E11.65 Type 2 diabetes mellitus with hyperglycemia; I25.10 Atherosclerotic heart disease of native coronary artery without angina pectoris; E11.22 Type 2 diabetes mellitus with diabetic chronic kidney disease; E11.51 Type 2 diabetes mellitus with diabetic peripheral angiopathy without gangrene; I48.0 Paroxysmal atrial fibrillation; Z66 Do not resuscitate; F17.200 Nicotine dependence, unspecified, uncomplicated; E78.5 Hyperlipidemia, unspecified; I25.2 Old myocardial infarction; Z79.01 Long term (current) use of anticoagulants; Z79.02 Long term (current) use of antithrombotics/antiplatelets; Z98.61 Coronary angioplasty status; Z99.2 Dependence on renal dialysis; Z79.84 Long term (current) use of oral hypoglycemic drugs; Z82.49 Family history of ischemic heart disease and other diseases of the circulatory system; Z82.5 Family history of asthma and other chronic lower respiratory diseases; Z83.3 Family history of diabetes mellitus
CPT/HCPCS: 36415; 36600; 70450; 71045; 71250; 74176; 80048; 80053; 80202; 81001; 82728; 82805; 82962; 83540; 83550; 83735; 84484; 85007; 85025; 85027; 87040; 87070; 87081; 87205; 90935; 93005; 93306; 93926; 94002; 94003; 95819; 99291; A6257; C9113; G0378; J0171; J0610; J0885; J1265; J1642; J1815; J2543; J7060